=== PATIENT | female | born 1935 | race Caucasian/White ===

== ENCOUNTER 2016-12-13 10:21 | Emergency (ER) | payer OTHER ==
[~2016-12-13] VITALS: Ht 167.6 cm; Wt 80.0 kg
[~2016-12-13 10:21] MED LIST: ACET-703 PO; APIX5TAB PO; AZEL1SPR2 EACH NARE; BUSP10TA PO; CETI1TAB39 PO; DILT120T PO; FLUT1SPR5 EACH NARE; FOSA70TA PO; LOVA20TA PO; MONT10TA4 PO; OMEP40CA2 PO
[2016-12-13 10:24] VITALS: BP 176/76; PULSE 69; RESP 16; TEMP 97.8; O2SAT 98
--- NOTE | 2016-12-13 14:08 | PD ---
HPI Chief Complaint: Numbness/Tingling Time Seen by Provider: 13:58 Travel History International Travel<30 days: No Contact w/Intl Traveler<30days: No Traveled to known affect area: No History of Present Illness HPI This is an 81-year-old female with history of atrial fibrillation on eliquis, hypertension who presents for evaluation of numbness and tingling and weakness intermittently in the left upper and lower extremity. She reports that 3 weeks ago she stepped in a hole in her yard and fell, landing on her left side. She does not know if she hit her head or not. She reports that since then she has had some generalized pressure sensation in her head as well as some mild lower back pain which she describes as a soreness. She now reports that starting 4 days ago she has had intermittent episodes of numbness and heaviness/weakness sensation in her left arm and leg. She also was experiencing similar symptoms in her right leg which have since resolved. The episodes come and go, seemed to be primarily exacerbated by walking or standing. She is not currently experiencing any numbness or heaviness/weakness sensation. Symptoms have persisted which prompted evaluation today. She denies any blurred vision, facial droop, slurred speech, chest pain or shortness of breath, abdominal pain , nausea or vomiting, bowel or bladder incontinence, saddle anesthesia. Per chart review she was admitted for intermittent left leg numbness in 2014 but she says that this feels completely different. She reports that she was seeing neurologist Dr. Sousa. No other complaints. PFSH Past Medical History Hx Anticoagulant Therapy: Yes Arthritis: Yes (BILATERAL KNEES) Asthma: Yes Heart Rhythm Problems: No Cancer: No Cardiac Catheterization: No Cardiovascular Problems: Yes (A-FIB) High Cholesterol: No Chest Pain: Yes (ANXIETY RELATED) Congestive Heart Failure: No Cerebrovascular Accident: Yes Diabetes: No Diminished Hearing: No Diverticulitis: Yes (PERFORATED COLON) Endocrine: No Gastrointestinal Disorders: Yes (colon resection) Genitourinary: No Hypertension: Yes Immune Disorder: No Musculoskeletal: Yes Neurologic: No Reproductive: No Respiratory: Yes Past Surgical History Abdominal Surgery: Yes Appendectomy: Yes Cholecystectomy: Yes Coronary Artery Bypass Graft: No Gynecologic Surgery: Yes Hysterectomy: Yes Other Surgery: Yes (COLON RESECTION) Social History Alcohol Use: Yes (occasional wine) Tobacco Use: No Substance Use: No Allergies-Medications (Allergen,Severity, Reaction): Coded Allergies: No Known Allergies (Verified , 12/13/16) Reported Meds & Prescriptions Reported Meds & Active Scripts Active Medrol Dosepak (Methylprednisolone) 4 Mg Dspk 4 Mg PO DIRECTED Per Pharmacist direction Reported Diltiazem (Diltiazem HCl) 30 Mg Tab 10 Mg PO BID Omeprazole 20 Mg Tab 20 Mg PO DAILY Tylenol Extra Strength (Acetaminophen) 500 Mg Tab 500 Mg PO BID Fosamax (Alendronate Sodium) 70 Mg Tab 70 Mg PO WEEKLY Zyrtec Allergy (Cetirizine HCl) 10 Mg Tab 10 Mg PO DAILY Azelastine Nasal [place] (Azelastine HCl) 0.1% [place] 1 [place] EACH NARE HS PRN Montelukast (Montelukast Sodium) 10 Mg Tab 10 Mg PO HS PRN Flonase Nasal [place] (Fluticasone Nasal [place]) 50 Mcg/Act [place] 1 [place] EACH NARE DAILY Eliquis (Apixaban) 5 Mg Tab 5 Mg PO Q12HR Buspirone (Buspirone HCl) 10 Mg Tab 10 Mg PO Q12HR Lovastatin 20 Mg Tab 20 Mg PO DAILY Review of Systems Except as stated in HPI: all other systems reviewed are Neg Physical Exam Narrative GENERAL: Well-developed well-nourished female in no acute distress SKIN: Warm and dry. HEAD: Atraumatic. Normocephalic. EYES: Pupils equal and round. No scleral icterus. No injection or drainage. ENT: No nasal bleeding or discharge. Mucous membranes pink and moist. NECK: Trachea midline. No JVD. CARDIOVASCULAR: Regular rate and rhythm. No murmur appreciated. RESPIRATORY: No accessory muscle use. Clear to auscultation. Breath sounds equal bilaterally. GASTROINTESTINAL: Abdomen soft, non-tender, nondistended. Hepatic and splenic margins not palpable. MUSCULOSKELETAL: No obvious deformities. No clubbing. No cyanosis. No edema. NEUROLOGICAL: Awake and alert. No obvious cranial nerve deficits. Motor grossly within normal limits. Normal speech. 5 out of 5 muscle strength in the upper and lower extremities. PSYCHIATRIC: Appropriate mood and affect; insight and judgment normal. Data Data Last Documented VS Vital Signs Date Time Temp Pulse Resp B/P Pulse Ox O2 Delivery O2 Flow Rate FiO2 12/13/16 15:49 61 18 98 12/13/16 10:24 97.8 176/[address] Brain W/O Iv Contrast(Rout) (12/13/16 ) Spine, Lumbar - Ltd (Ap & Lat) (12/13/16 ) Electrocardiogram (12/13/16 14:03) Prothrombin Time / Inr (Pt) (12/13/16 14:03) Act Partial Throm Time (Ptt) (12/13/16 14:03) Complete Blood Count With Diff (12/13/16 14:03) Basic Metabolic Panel (Bmp) (12/13/16 14:03) Magnesium (Mg) (12/13/16 14:03) Mri L Spine W/O Contrast (12/13/16 ) Labs Laboratory Tests Test 12/13/16 14:10 White Blood Count 9.6 TH/MM3 Red Blood Count 4.63 MIL/MM3 Hemoglobin 14.8 GM/DL Hematocrit 43.0 % Mean Corpuscular Volume 93.0 FL Mean Corpuscular Hemoglobin 32.0 PG Mean Corpuscular Hemoglobin 34.5 % Concent Red Cell Distribution Width 12.6 % Platelet Count 243 TH/MM3 Mean Platelet Volume 8.2 FL Neutrophils (%) (Auto) 76.7 % Lymphocytes (%) (Auto) 14.5 % Monocytes (%) (Auto) 8.2 % Eosinophils (%) (Auto) 0.1 % Basophils (%) (Auto) 0.5 % Neutrophils # (Auto) 7.4 TH/MM3 Lymphocytes # (Auto) 1.4 TH/MM3 Monocytes # (Auto) 0.8 TH/MM3 Eosinophils # (Auto) 0.0 TH/MM3 Basophils # (Auto) 0.0 TH/MM3 CBC Comment DIFF FINAL Differential Comment Prothrombin Time 11.2 SEC Prothromb Time International 1.0 RATIO Ratio Activated Partial 30.1 SEC Thromboplast Time Sodium Level 133 MEQ/L Potassium Level 3.7 MEQ/L Chloride Level 96 MEQ/L Carbon Dioxide Level 28.4 MEQ/L Anion Gap 9 MEQ/L Blood Urea Nitrogen 16 MG/DL Creatinine 0.83 MG/DL Estimat Glomerular Filtration 66 ML/MIN Rate Random Glucose 103 MG/DL Calcium Level 9.2 MG/DL Magnesium Level 1.9 MG/DL [facility] Medical Decision Making Medical Screen Exam Complete: Yes Emergency Medical Condition: Yes Medical Record Reviewed: Yes Differential Diagnosis TIA, CVA, subdural hematoma, intracranial hemorrhage, electrolyte abnormality, herniated nucleus pulposus, spinal stenosis Narrative Course 81-year-old female who presents with 4 days of intermittent weakness and numbness in her left arm and leg, some similar symptoms in her right leg which seemed to have resolved. She does also note mild lower back pain and a headache ever since a mechanical fall 3 weeks ago. She does have a history of atrial fibrillation and she is on eliquis. At this moment she is asymptomatic and she has no focal neurologic deficits on examination. Basic lab work, EKG, CT of the brain, lumbar spine x-ray have been ordered. The patient was initially seen in triage. She will be moved to a medical bed and one becomes available. Scripts Methylprednisolone Dosepak (Medrol Dosepak)4 Mg Dspk4 Mg PO DIRECTED #1 DSPK Ref 0 Per Pharmacist direction Prov:Jc Yao MD 12/13/16 Nirav Kramer Dec 13, 2016 14:08
[2016-12-13 14:35] LABS: AUTOMATED NEUTROPHIL # 7.4 TH/MM3 (1.8-7.7); BASOPHIL % 0.5 % (0.0-2.0); EOSINOPHIL % 0.1 % (0.0-4.0); HEMO FLAGS DIFF FINAL; LYMPH % 14.5 % (9.0-44.0); LYMPHOCYTE # 1.4 TH/MM3 (1.0-4.8); MEAN CORPUSCULAR HGB CONC 34.5 % (32.0-36.0); MONO % 8.2 % (0.0-8.0); NEUT % 76.7 % (16.0-70.0); PLATELET COUNT 243 TH/MM3 (150-450); RED BLOOD COUNT 4.63 MIL/MM3 (4.00-5.30); RED CELL DISTRIBUTION WIDTH 12.6 % (11.6-17.2); WHITE BLOOD COUNT 9.6 TH/MM3 (4.0-11.0)
[2016-12-13 14:37] LABS: APTT (PATIENT) 30.1 SEC (24.3-30.1); PROTHROMBIN TIME - PATIENT 11.2 SEC (9.8-11.6)
--- NOTE | 2016-12-13 14:41 | RADRPT ---
EXAM DATE/TIME: 12/13/2016 14:26 [facility] COMPARISON: No previous studies available for comparison. INDICATIONS : Patient states lower back pain with numbness down left leg. MEDICAL HISTORY : None. SURGICAL HISTORY : Appendectomy. Cholecystectomy. Hysterectomy. Colon. ENCOUNTER: Initial ACUITY: 3 weeks PAIN SCORE: 2/10 LOCATION: Bilateral lumbar. FINDINGS: There is minimal anterior listhesis of L4 on L5 with minimal loss of disc space he ight at L4-5 and L5-S1. Moderate degenerative changes are present in the facets. SI joints are norm al. CONCLUSION: Degenerative changes as described above. MRI may be of benefit. Srinivas Farah MD FACR on December 13, 2016 at 14:35 Board Certified Radiologist. This report was verified electronically.
[2016-12-13 14:42] LABS: BICARBONATE 28.4 MEQ/L (21.0-32.0); MAGNESIUM 1.9 MG/DL (1.5-2.5); POTASSIUM 3.7 MEQ/L (3.5-5.1)
--- NOTE | 2016-12-13 15:37 | RADRPT ---
EXAM DATE/TIME: 12/13/2016 15:20 [facility] COMPARISON: CT BRAIN W/O CONTRAST, August 13, 2015, 9:40. INDICATIONS : Numbness and weakness in left upper and lower extremity for four days. RADIATION DOSE: 56.77 CTDIvol (mGy) MEDICAL HISTORY : Stroke. Hypertension. SURGICAL HISTORY : Hysterectomy. ENCOUNTER: Initial ACUITY: 4 - 6 days PAIN SCALE: 0/10 LOCATION: Bilateral head TECHNIQUE: Multiple contiguous axial images were obtained of the head. Using automated exposure control and adj ustment of the mA and/or kV according to patient size, radiation dose was kept as low as reasonably a chievable to obtain optimal diagnostic quality images. FINDINGS: CEREBRUM: The ventricles are normal for age. No evidence of midline shift, mass lesion, hemorrhage or acute in farction. No extra-axial fluid collections are seen. POSTERIOR FOSSA: The cerebellum and brainstem are intact. The 4th ventricle is midline. The cerebellopontine angle i s unremarkable. EXTRACRANIAL: The visualized portion of the orbits is intact. SKULL: The calvaria is intact. No evidence of skull fracture. CONCLUSION: Negative for an acute process. Srinivas Farah MD FACR on December 13, 2016 at 15:35 Board Certified Radiologist. This report was verified electronically.
[2016-12-13] MEDS ORDERED: DILT30TA PO (15:55)
[2016-12-13] MEDS ORDERED: OMEP20TA PO (15:55)
--- NOTE | 2016-12-13 17:08 | RADRPT ---
EXAM DATE/TIME: 12/13/2016 16:30 [facility] COMPARISON: No previous studies available for comparison. INDICATIONS : Radiculopathy. MEDICAL HISTORY : Hypertension. Afib SURGICAL HISTORY : Appendectomy. Cholecystectomy. Hysterectomy. Colon resuction. ENCOUNTER: Initial ACUITY: 4-6 days PAIN SCORE: 2/10 LOCATION: Left leg and foot TECHNIQUE: Multiplanar multisequence MRI of the lumbar spine was performed without contrast. FINDINGS: The most caudal appearing lumbar vertebra is numbered as L5. VERTEBRAE: Homogeneous signal. Normal alignment. CONUS: Normal level and configuration. Patient has 8 generous spinal canal T12-L1: The thecal sac has a normal diameter. No evidence of disc bulge or protrusion. The neural foramina are patent bilaterally. L1-L2: The thecal sac has a normal diameter. No evidence of disc bulge or protrusion. The neural foramina are patent bilaterally. L2-L3: The thecal sac has a normal diameter. No evidence of disc bulge or protrusion. The neural foramina are patent bilaterally. L3-L4: The thecal sac has a normal diameter. No evidence of disc bulge or protrusion. The neural foramina are patent bilaterally. L4-L5: The thecal sac has a normal diameter. No evidence of disc bulge or protrusion. The neural foramina are patent bilaterally. L5-S1: The thecal sac has a normal diameter. No evidence of disc bulge or protrusion. The neural foramina are patent bilaterally. CONCLUSION: I do not see disc hernia ion, conal impingement or other neural impingement to account for the left l ower extremity symptomatology.. Srinivas Farah MD FACR on December 13, 2016 at 17:04 Board Certified Radiologist. This report was verified electronically.
[2016-12-13] MEDS ORDERED: MEDR4PAK PO (17:15)
--- NOTE | 2016-12-13 17:15 | PD ---
Physical Exam Date Seen by Provider: Dec 13, 2016 Time Seen by Provider: 17:10 Narrative 81-year-old female that presents to the ED for evaluation of left lower leg numbness. Please refer to Nirav Kramer PAC note. She was originally seen by him. Case was signed out to me pending disposition and further testing if needed Data Data Last Documented VS Vital Signs Date Time Temp Pulse Resp B/P Pulse Ox O2 Delivery O2 Flow Rate FiO2 12/13/16 15:49 61 18 98 12/13/16 10:24 97.8 176/[address] Brain W/O Iv Contrast(Rout) (12/13/16 ) Spine, Lumbar - Ltd (Ap & Lat) (12/13/16 ) Electrocardiogram (12/13/16 14:03) Prothrombin Time / Inr (Pt) (12/13/16 14:03) Act Partial Throm Time (Ptt) (12/13/16 14:03) Complete Blood Count With Diff (12/13/16 14:03) Basic Metabolic Panel (Bmp) (12/13/16 14:03) Magnesium (Mg) (12/13/16 14:03) Mri L Spine W/O Contrast (12/13/16 ) Labs Laboratory Tests Test 12/13/16 14:10 White Blood Count 9.6 TH/MM3 Red Blood Count 4.63 MIL/MM3 Hemoglobin 14.8 GM/DL Hematocrit 43.0 % Mean Corpuscular Volume 93.0 FL Mean Corpuscular Hemoglobin 32.0 PG Mean Corpuscular Hemoglobin 34.5 % Concent Red Cell Distribution Width 12.6 % Platelet Count 243 TH/MM3 Mean Platelet Volume 8.2 FL Neutrophils (%) (Auto) 76.7 % Lymphocytes (%) (Auto) 14.5 % Monocytes (%) (Auto) 8.2 % Eosinophils (%) (Auto) 0.1 % Basophils (%) (Auto) 0.5 % Neutrophils # (Auto) 7.4 TH/MM3 Lymphocytes # (Auto) 1.4 TH/MM3 Monocytes # (Auto) 0.8 TH/MM3 Eosinophils # (Auto) 0.0 TH/MM3 Basophils # (Auto) 0.0 TH/MM3 CBC Comment DIFF FINAL Differential Comment Prothrombin Time 11.2 SEC Prothromb Time International 1.0 RATIO Ratio Activated Partial 30.1 SEC Thromboplast Time Sodium Level 133 MEQ/L Potassium Level 3.7 MEQ/L Chloride Level 96 MEQ/L Carbon Dioxide Level 28.4 MEQ/L Anion Gap 9 MEQ/L Blood Urea Nitrogen 16 MG/DL Creatinine 0.83 MG/DL Estimat Glomerular Filtration 66 ML/MIN Rate Random Glucose 103 MG/DL Calcium Level 9.2 MG/DL Magnesium Level 1.9 MG/DL [facility] Medical Record Reviewed: Yes Supervised Visit with PATRICIA: No Interpretation(s) Last Impressions Head CT 12/13/16 0000 Signed Impressions: Service Date/Time: Tuesday, December 13, 2016 15:20 - CONCLUSION: Negative for an acute process. Srinivas Farah MD FACR Lumbar x-ray showed no sign of acute disease but radiology recommended MRI MRI of the lumbar spine show no sign of acute disease. Differential Diagnosis Radiculopathy versus neuropathy versus weakness versus numbness Narrative Course 81-year-old female that presents to the ED for evaluation of left lower leg numbness. Patient was properly examined and was found to have signs and symptoms consistent appears to be subjective numbness. Patient has no neurological deficits on exam. Patient has 5 out of 5 strength. Full range of motion. Good 2+ pulses on my physical examination. No discoloration of the skin. No calf tenderness. Patient was originally seen by Bruce Kramer who asked me to disposition the patient pending imaging and labs. Initial labs and imaging ordered by him were essentially unremarkable. The lumbar x-ray the recommend an MRI for further evaluation of possible lumbar/buttock but the. A MRI was ordered. Patient agrees with plan. MRI was negative for acute disease. No sign of severe illness. No sign of mass. Unclear etiology of numbness but from the history does appear to be neuropathic. At this time I will start patient on some low-dose steroids to see maybe this will help with the symptoms for possible contusion to the nerve. Patient cannot take anti- inflammatories secondary to a rate taking blood thinners. Patient was told to take Tylenol for pain if she has any. My recommendation is that she follows up closely with PCP for further evaluation of this. See ED for any worsening symptoms. She agrees with plan. Diagnosis Primary Impression: Left leg numbness Additional Impression: Contusion Qualified Code: S30.0XXA - Contusion of lower back, initial encounter Patient Instructions: General Instructions Additional Instruction: Follow with your PCP these week. See ED for any worsening symptoms. Labs and imaging were essentially unremarkable here. No sign of acute disease. See ED for worsening symptoms. Med/Other Pt SpecificInfo: Prescription(s) given Disposition: 01 DISCHARGE HOME Condition: Stable Demetrius Aragon Dec 13, 2016 17:15
--- NOTE | 2016-12-15 08:15 | EKG ---
Date Performed: 12/13/2016 Time Performed: 14:51:20 PTAGE: 81 years EKG: SINUS BRADYCARDIA PROBABLE INFERIOR MYOCARDIAL INFARCTION POSSIBLE LEFT ATRIAL ENLARGEMENT ABNORMAL ECG Compared to PREVIOUS TRACING , there has been a slight increase in the lateral ST segment changes but no other significant serial change. PREVIOUS TRACIN09/07/2016 10.36.25 DOCTOR: Tiara Vasquez Interpretating Date/Time 12/16/2016 06:51:55
== END 2016-12-13 19:05 | disposition home or self-care (01) ==
LOC: NEPE 10:21
DX: R20.0 Anesthesia of skin (principal); S30.0XXA Contusion of lower back and pelvis, initial encounter; R53.1 Weakness; R51 Headache; R94.31 Abnormal electrocardiogram [ECG] [EKG]; I10 Essential (primary) hypertension; W17.2XXA Fall into hole, initial encounter; Z79.01 Long term (current) use of anticoagulants; Z87.39 Personal history of other diseases of the musculoskeletal system and connective tissue; Z87.09 Personal history of other diseases of the respiratory system; Z86.79 Personal history of other diseases of the circulatory system; Z87.19 Personal history of other diseases of the digestive system
CPT/HCPCS: 70450; 72100; 72148; 80048; 83735; 85025; 85610; 85730; 93005

== ENCOUNTER 2016-12-14 14:24 | Inpatient (IN) | payer OTHER, MEDICARE ==
[2016-12-14] VITALS (7 sets, daily range): BP systolic 168–180; BP diastolic 77–85; PULSE 59–68; RESP 16–20; TEMP 97.8–98.3; O2SAT 94–98
[~2016-12-14] VITALS: Ht 167.6 cm; Wt 85.8 kg
[~2016-12-14 14:24] MED LIST changes: -DILT120T PO; +DILT30TA PO; +MEDR4PAK PO; +OMEP20TA PO; -OMEP40CA2 PO
[2016-12-14] MEDS ORDERED: ASPIRIN 325 MG TAB PO ONE (14:45)
[2016-12-14] MEDS ORDERED: SODIUM CHLORIDE 0.9% FLUSH 10 ML FLUSH IVF PRN (14:45)
--- NOTE | 2016-12-14 14:47 | PD ---
HPI Chief Complaint: Numbness/Tingling Time Seen by Provider: 14:33 Travel History International Travel<30 days: No Contact w/Intl Traveler<30days: No History of Present Illness HPI Patient is an 81-year-old female with history of hypertension, atrial fibrillation (on eliquis), TIAs, hyperlipidemia, presents to emergency room for evaluation of left-sided weakness and tingling. Patient reports that since Tuesday, she has been having intermittent left-sided tingling and weakness. She reports that when symptoms come on, they last for about 10 minutes at a time and then resolve on it's own. Reports that yesterday, she had similar symptoms and went to [facility], reports that they did a CAT scan of her head as well as MRI of her low back and sent her home with instructions to follow-up with her primary care doctor. Patient reports that she continued to have symptoms last night, reports that she had symptoms again this morning, reports that when she has these attacks of left-sided weakness and tingling, nothing usually brings them on, reports complete resolution within 10 minutes of onset of symptoms. Patient reports that she did feel increased weakness to the left side of her body while in triage, reports that she feels better at this time with resolution of symptoms. Reports that she feels weak all over right now. Denies chest pain or shortness of breath at this time. Denies headache or dizziness. Patient reports "I just feel weak all over." PFSH Past Medical History Hx Anticoagulant Therapy: Yes Arthritis: Yes (BILATERAL KNEES) Asthma: Yes Heart Rhythm Problems: No Cancer: No Cardiac Catheterization: No Cardiovascular Problems: Yes (A-FIB) High Cholesterol: No Chest Pain: Yes (ANXIETY RELATED) Congestive Heart Failure: No Cerebrovascular Accident: Yes Diabetes: No Diminished Hearing: No Diverticulitis: Yes (PERFORATED COLON) Endocrine: No Gastrointestinal Disorders: Yes (colon resection) Genitourinary: No Hypertension: Yes Immune Disorder: No Musculoskeletal: Yes Neurologic: No Reproductive: No Respiratory: Yes Menopausal: Yes Past Surgical History Abdominal Surgery: Yes Appendectomy: Yes Cholecystectomy: Yes Coronary Artery Bypass Graft: No Gynecologic Surgery: Yes Hysterectomy: Yes Other Surgery: Yes (COLON RESECTION) Social History Alcohol Use: Yes (occasional wine) Tobacco Use: No Substance Use: No Allergies-Medications (Allergen,Severity, Reaction): Coded Allergies: No Known Allergies (Verified , 12/14/16) Reported Meds & Prescriptions Reported Meds & Active Scripts Active Medrol Dosepak (Methylprednisolone) 4 Mg Dspk 4 Mg PO DIRECTED Per Pharmacist direction Reported Diltiazem (Diltiazem HCl) 30 Mg Tab 10 Mg PO BID Omeprazole 20 Mg Tab 20 Mg PO DAILY Tylenol Extra Strength (Acetaminophen) 500 Mg Tab 500 Mg PO BID Fosamax (Alendronate Sodium) 70 Mg Tab 70 Mg PO WEEKLY Zyrtec Allergy (Cetirizine HCl) 10 Mg Tab 10 Mg PO DAILY Azelastine Nasal [place] (Azelastine HCl) 0.1% [place] 1 [place] EACH NARE HS PRN Montelukast (Montelukast Sodium) 10 Mg Tab 10 Mg PO HS PRN Flonase Nasal [place] (Fluticasone Nasal [place]) 50 Mcg/Act [place] 1 [place] EACH NARE DAILY Eliquis (Apixaban) 5 Mg Tab 5 Mg PO Q12HR Buspirone (Buspirone HCl) 10 Mg Tab 10 Mg PO Q12HR Lovastatin 20 Mg Tab 20 Mg PO DAILY Review of Systems General / Constitutional: No: Fever Eyes: No: Visual changes HENT: No: Headaches Cardiovascular: No: Chest Pain or Discomfort Respiratory: No: Shortness of Breath Gastrointestinal: No: Abdominal Pain Genitourinary: No: Dysuria Musculoskeletal: No: Pain Skin: No Rash Neurologic: Positive: Weakness, Sensory Disturbance Psychiatric: No: Depression Endocrine: No: Polydipsia Hematologic/Lymphatic: No: Easy Bruising Physical Exam Narrative GENERAL: NAD, Nontoxic SKIN: Warm and dry. HEAD: Atraumatic. Normocephalic. EYES: Pupils equal and round. No scleral icterus. No injection or drainage. ENT: No nasal bleeding or discharge. Mucous membranes pink and moist. NECK: Trachea midline. No JVD. CARDIOVASCULAR: Regular rate and rhythm. No murmur appreciated. RESPIRATORY: No accessory muscle use. Clear to auscultation. Breath sounds equal bilaterally. GASTROINTESTINAL: Abdomen soft, non-tender, nondistended. Hepatic and splenic margins not palpable. MUSCULOSKELETAL: No obvious deformities. No clubbing. No cyanosis. No edema. NEUROLOGICAL: Awake and alert. No obvious cranial nerve deficits. Motor grossly within normal limits. Normal speech. Cranial nerves 2-12 grossly intact with no obvious neurological deficits PSYCHIATRIC: Appropriate mood and affect; insight and judgment normal. Data Data Last Documented VS Vital Signs Date Time Temp Pulse Resp B/P Pulse Ox O2 Delivery O2 Flow Rate FiO2 12/14/16 14:47 98 12/14/16 14:47 66 16 Room Air 12/14/16 14:40 98.3 175/77 Orders Electrocardiogram (12/14/16 14:39) Prothrombin Time / Inr (Pt) (12/14/16 14:39) Act Partial Throm Time (Ptt) (12/14/16 14:39) Complete Blood Count With Diff (12/14/16 14:39) Comprehensive Metabolic Panel (12/14/16 14:39) Creatine Kinase (Cpk) (12/14/16 14:39) Troponin I (12/14/16 14:39) Urinalysis - C+S If Indicated (12/14/16 14:39) Ct Brain W/O Iv Contrast(Rout) (12/14/16 14:39) Chest, Single Ap (12/14/16 14:39) Ecg Monitoring (12/14/16 14:39) Iv Access Insert/Monitor (12/14/16 14:39) Oximetry (12/14/16 14:39) Aspirin (Aspirin) (12/14/16 14:45) Sodium Chloride 0.9% Flush (Ns Flush) (12/14/16 14:45) Ct Cerv Spine W/O Contrast (12/14/16 14:44) Labs Laboratory Tests Test 12/14/16 15:04 White Blood Count 9.6 TH/MM3 Red Blood Count 4.51 MIL/MM3 Hemoglobin 14.2 GM/DL Hematocrit 42.2 % Mean Corpuscular Volume 93.5 FL Mean Corpuscular Hemoglobin 31.4 PG Mean Corpuscular Hemoglobin 33.6 % Concent Red Cell Distribution Width 12.0 % Platelet Count 255 TH/MM3 Mean Platelet Volume 8.1 FL Neutrophils (%) (Auto) 88.7 % Lymphocytes (%) (Auto) 8.3 % Monocytes (%) (Auto) 2.7 % Eosinophils (%) (Auto) 0.1 % Basophils (%) (Auto) 0.2 % Neutrophils # (Auto) 8.5 TH/MM3 Lymphocytes # (Auto) 0.8 TH/MM3 Monocytes # (Auto) 0.3 TH/MM3 Eosinophils # (Auto) 0.0 TH/MM3 Basophils # (Auto) 0.0 TH/MM3 CBC Comment DIFF FINAL Differential Comment Prothrombin Time 11.6 SEC Prothromb Time International 1.0 RATIO Ratio Activated Partial 31.2 SEC Thromboplast Time Sodium Level 131 MEQ/L Potassium Level 3.8 MEQ/L Chloride Level 95 MEQ/L Carbon Dioxide Level 25.6 MEQ/L Anion Gap 10 MEQ/L Blood Urea Nitrogen 20 MG/DL Creatinine 0.85 MG/DL Estimat Glomerular Filtration 64 ML/MIN Rate Random Glucose 191 MG/DL Calcium Level 8.9 MG/DL Total Bilirubin 0.7 MG/DL Aspartate Amino Transf 13 U/L (AST/SGOT) Alanine Aminotransferase 23 U/L (ALT/SGPT) Alkaline Phosphatase 50 U/L Total Creatine Kinase 38 U/L Troponin I LESS THAN 0.02 NG/ML Total Protein 6.9 GM/DL Albumin 3.7 GM/DL MDM Medical Decision Making Medical Screen Exam Complete: Yes Emergency Medical Condition: Yes Interpretation(s) EKG at 1445: NSR at 62bpm, qt/qtc: 414/417, nonspecific st seg changes Differential Diagnosis CVA, TIA, intracranial hemorrhage, atrial fibrillation, electrolyte abnormality , arrhythmia Narrative Course Patient is an 81-year-old female who presents to emergency room with complaints of left-sided numbness and weakness since Tuesday. Patient reports that symptoms have been intermittent for her, they last for about 10 minutes at a time. Patient was seen in the emergency yesterday and had a workup, she was sent home with instructions to follow-up with her primary care doctor. Patient continues to have increased intermittent left-sided weakness and numbness. Patient at this time has resolution of symptoms and reports generalized weakness. Her neuro exam is benign. Discussed need for workup for possible TIAs. Ct of head ordered as well as lab work. Will give patient an aspirin Ailyn Van DO Dec 14, 2016 14:47
[2016-12-14 15:22] LABS: CHLORIDE 95 MEQ/L (98-107); POTASSIUM 3.8 MEQ/L (3.5-5.1); SODIUM (NA) 131 MEQ/L (136-145)
[2016-12-14 15:26] LABS: ANION GAP 10 MEQ/L (5-15); APTT (PATIENT) 31.2 SEC (24.3-30.1); BICARBONATE 25.6 MEQ/L (21.0-32.0); BLOOD UREA NITROGEN 20 MG/DL (7-18); PROTHROMBIN TIME - PATIENT 11.6 SEC (9.8-11.6)
[2016-12-14 15:29] LABS: ALT (GPT) 23 U/L (10-53); AST (GOT) 13 U/L (15-37); GLOMERULAR FILTRATION RATE 64 ML/MIN (>89)
[2016-12-14 15:31] LABS: TOTAL BILIRUBIN ADULT 0.7 MG/DL (0.2-1.0)
[2016-12-14 15:32] LABS: ALKALINE PHOSPHATASE 50 U/L (45-117)
[2016-12-14 15:37] LABS: AUTOMATED NEUTROPHIL # 8.5 TH/MM3 (1.8-7.7); BASOPHIL % 0.2 % (0.0-2.0); EOSINOPHIL % 0.1 % (0.0-4.0); HEMATOCRIT 42.2 % (35.0-46.0); LYMPH % 8.3 % (9.0-44.0); LYMPHOCYTE # 0.8 TH/MM3 (1.0-4.8); MEAN CELL VOLUME 93.5 FL (80.0-100.0); MEAN CORPUSCULAR HEMOGLOBIN 31.4 PG (27.0-34.0); MEAN CORPUSCULAR HGB CONC 33.6 % (32.0-36.0); MONO % 2.7 % (0.0-8.0); NEUT % 88.7 % (16.0-70.0); PLATELET COUNT 255 TH/MM3 (150-450); RED BLOOD COUNT 4.51 MIL/MM3 (4.00-5.30); WHITE BLOOD COUNT 9.6 TH/MM3 (4.0-11.0)
[2016-12-14 15:39] LABS: HEMO FLAGS DIFF FINAL
[2016-12-14 15:47] LABS: CREATINE KINASE 38 U/L (26-192)
--- NOTE | 2016-12-14 15:56 | RADHPO ---
EXAM DATE/TIME: 12/14/2016 14:44 [facility] COMPARISON: CHEST SINGLE AP, September 07, 2016, 10:37. INDICATIONS : Shortness of breath. MEDICAL HISTORY : Stroke. Hypertension SURGICAL HISTORY : Hysterectomy. ENCOUNTER: Initial ACUITY: 1 day PAIN SCORE: 0/10 LOCATION: Bilateral chest FINDINGS: A single view of the chest demonstrates the lungs to be symmetrically aerated without evidence of mas s, infiltrate or effusion. A calcified granuloma is seen within the left upper lobe. The cardiomedia stinal contours are unremarkable. Osseous structures are intact. CONCLUSION: No acute disease. Nomi Caballero Jr., MD on December 14, 2016 at 15:54 Board Certified Radiologist. This report was verified electronically.
--- NOTE | 2016-12-14 16:29 | RADHPO ---
EXAM DATE/TIME: 12/14/2016 15:29 [facility] COMPARISON: CT BRAIN W/O CONTRAST, December 13, 2016, 15:20. INDICATIONS : Numbness left arm. Nausea. Evaluate for cerebrovascular accident. RADIATION DOSE: 57.03 CTDIvol (mGy) MEDICAL HISTORY : Cerebrovascular disease. Hypertension. SURGICAL HISTORY : None. ENCOUNTER: Initial ACUITY: 3 weeks PAIN SCALE: 6/10 LOCATION: Bilateral occipital TECHNIQUE: Multiple contiguous axial images were obtained of the head. Using automated exposure control and adj ustment of the mA and/or kV according to patient size, radiation dose was kept as low as reasonably a chievable to obtain optimal diagnostic quality images. FINDINGS: CEREBRUM: The ventricles are normal for age. No evidence of midline shift, mass lesion, hemorrhage or acute in farction. No extra-axial fluid collections are seen. POSTERIOR FOSSA: The cerebellum and brainstem are intact. The 4th ventricle is midline. The cerebellopontine angle i s unremarkable. EXTRACRANIAL: The visualized portion of the orbits is intact. SKULL: The calvaria is intact. No evidence of skull fracture. CONCLUSION: 1. No evidence of acute intracranial pathology. No masses are identified. Marciano Small MD on December 14, 2016 at 16:27 Board Certified Radiologist. This report was verified electronically.
--- NOTE | 2016-12-14 16:35 | RADHPO ---
EXAM DATE/TIME: 12/14/2016 15:29 [facility] COMPARISON: No previous studies available for comparison. INDICATIONS : Left upper extremity numbness. RADIATION DOSE: 26.43 CTDIvol (mGy) MEDICAL HISTORY : Cerebrovascular disease. Hypertension. SURGICAL HISTORY : None. ENCOUNTER: Initial ACUITY: 3 weeks PAIN SCALE: 6/10 LOCATION: Bilateral neck TECHNIQUE: Volumetric scanning of the cervical spine was performed. Multiplanar reconstructions in the sagittal, coronal and oblique axial planes were performed. Using automated exposure control and adjustment o f the mA and/or kV according to patient size, radiation dose was kept as low as reasonably achievable to obtain optimal diagnostic quality images. FINDINGS: CT of the cervical spine was performed in sagittal and axial planes. There is straightening of the no rmal cervical lordosis which may be secondary positioning or spasm. No focal areas of marrow replacem ent are identified. The craniocervical junction appears normal. Axial images were performed from C2-C 3 through C7-T1. There is multilevel disc space narrowing and marginal osteophyte formation maximal a t C5-C6. C2-C3: No significant abnormalities identified. C3-C4: There is uncovertebral joint hypertrophy on left side. There is mild left sided neural foraminal narr owing. There is mild facet arthritis on the left. There is no significant spinal canal stenosis. C4-C5: There is mild diffuse annular bulge of the disc. The neural foramina are clear bilaterally. There is no significant spinal canal stenosis. C5-C6: There is osteophytic ridging asymmetric to the right. There is mild right sided neural foraminal narr owing. C6-C7: There is no evidence of disc protrusion or spinal canal stenosis. There is uncovertebral joint hypert rophy on left side. There is mild left sided neural foraminal narrowing. C7-T1: No significant abnormalities identified. CONCLUSION: 1. Moderate degenerative changes as described above. this is maximal asymmetric to the right at C5-C6 without stenosis. Marciano Small MD on December 14, 2016 at 16:28 Board Certified Radiologist. This report was verified electronically.
--- NOTE | 2016-12-14 17:06 | PD ---
Physical Exam Narrative Received from previous provider to follow up imaging and admit for observation for TIA. 81yo F with afib on eliquis, TIA with left sided weakness here with new onset left arm and leg numbness for 4 days. States it is intermittent. Only deficit on exam is decreased sensation on left arm and leg compare to right. Muscle strength 5/5 in all extremities. Labs reviewed, no leukocytosis. Mild hyponatremia and mildly elevated BUN. Troponin negative. Will give NS 500cc IV. CT cspine showed moderate degenerative changes. CXR negative. CT brain negative. Discussed with Dr. Goodwin and accepted to his service. Neuro consult placed. Data Data Last Documented VS Vital Signs Date Time Temp Pulse Resp B/P Pulse Ox O2 Delivery O2 Flow Rate FiO2 12/14/16 14:47 98 12/14/16 14:47 66 16 Room Air 12/14/16 14:40 98.3 175/77 Orders Electrocardiogram (12/14/16 14:39) Prothrombin Time / Inr (Pt) (12/14/16 14:39) Act Partial Throm Time (Ptt) (12/14/16 14:39) Complete Blood Count With Diff (12/14/16 14:39) Comprehensive Metabolic Panel (12/14/16 14:39) Creatine Kinase (Cpk) (12/14/16 14:39) Troponin I (12/14/16 14:39) Urinalysis - C+S If Indicated (12/14/16 14:39) Ct Brain W/O Iv Contrast(Rout) (12/14/16 14:39) Chest, Single Ap (12/14/16 14:39) Ecg Monitoring (12/14/16 14:39) Iv Access Insert/Monitor (12/14/16 14:39) Oximetry (12/14/16 14:39) Aspirin (Aspirin) (12/14/16 14:45) Sodium Chloride 0.9% Flush (Ns Flush) (12/14/16 14:45) Ct Cerv Spine W/O Contrast (12/14/16 14:44) Labs Laboratory Tests Test 12/14/16 15:04 White Blood Count 9.6 TH/MM3 Red Blood Count 4.51 MIL/MM3 Hemoglobin 14.2 GM/DL Hematocrit 42.2 % Mean Corpuscular Volume 93.5 FL Mean Corpuscular Hemoglobin 31.4 PG Mean Corpuscular Hemoglobin 33.6 % Concent Red Cell Distribution Width 12.0 % Platelet Count 255 TH/MM3 Mean Platelet Volume 8.1 FL Neutrophils (%) (Auto) 88.7 % Lymphocytes (%) (Auto) 8.3 % Monocytes (%) (Auto) 2.7 % Eosinophils (%) (Auto) 0.1 % Basophils (%) (Auto) 0.2 % Neutrophils # (Auto) 8.5 TH/MM3 Lymphocytes # (Auto) 0.8 TH/MM3 Monocytes # (Auto) 0.3 TH/MM3 Eosinophils # (Auto) 0.0 TH/MM3 Basophils # (Auto) 0.0 TH/MM3 CBC Comment DIFF FINAL Differential Comment Prothrombin Time 11.6 SEC Prothromb Time International 1.0 RATIO Ratio Activated Partial 31.2 SEC Thromboplast Time Sodium Level 131 MEQ/L Potassium Level 3.8 MEQ/L Chloride Level 95 MEQ/L Carbon Dioxide Level 25.6 MEQ/L Anion Gap 10 MEQ/L Blood Urea Nitrogen 20 MG/DL Creatinine 0.85 MG/DL Estimat Glomerular Filtration 64 ML/MIN Rate Random Glucose 191 MG/DL Calcium Level 8.9 MG/DL Total Bilirubin 0.7 MG/DL Aspartate Amino Transf 13 U/L (AST/SGOT) Alanine Aminotransferase 23 U/L (ALT/SGPT) Alkaline Phosphatase 50 U/L Total Creatine Kinase 38 U/L Troponin I LESS THAN 0.02 NG/ML Total Protein 6.9 GM/DL Albumin 3.7 GM/DL MDM Supervised Visit with PATRICIA: No Diagnosis Primary Impression: CVA (cerebral vascular accident) Qualified Code: I63.9 - Cerebrovascular accident (CVA), unspecified mechanism Admitting Information Admitting Physician Requests: Shanell Barone DO Dec 14, 2016 17:06
[2016-12-14] MEDS ORDERED: ENALAPRILAT 1.25 MG/ML VIAL IV PRN (17:15)
[2016-12-14] MEDS ORDERED: GLUCAGON 1 MG/ML VIAL OTHER PRN (17:15)
[2016-12-14] MEDS ORDERED: DEXTROSE 50% IN WATER 50 ML VIAL(D50) IV PUSH PRN (17:15)
[2016-12-14] MEDS ORDERED: SODIUM CHLORIDE 0.9% FLUSH 10 ML FLUSH IV FLUSH PRN (17:15)
[2016-12-14 17:31] LABS: BLOOD, URINE NEG (NEG); GLUCOSE,URINE NEG (NEG); KETONE, URINE NEG (NEG); NITRITE,URINE NEG (NEG); PH, URINE 6.5 (5.0-8.5)
[2016-12-14 17:37] LABS: COMMENT (UR) CATH-CULT NOT IND; CULTURE IF INDICATED CATH CULTURE NOT IND; MUCUS URINE RARE /lpf (OCC); SQUAMOUS EPITHELIAL CELL URINE 0-5 /hpf (0-5); URINE COLOR YELLOW (YELLW/STRAW)
[2016-12-14] MEDS ORDERED: SODIUM CHLORID 0.9% 500 ML INJ 500 ML IV ONE (17:45)
--- NOTE | 2016-12-14 18:32 | HHI.HP ---
[facility] Service [facility] Primary [facility] Physician Nan Burroughs MD Admission Diagnosis CVA Diagnoses: (1) Left leg weakness Diagnosis: Principal (2) Left arm numbness Diagnosis: Principal (3) History of transient ischemic attack Diagnosis: Secondary (4) Atrial fibrillation Diagnosis: Secondary (5) Hypertension Diagnosis: Secondary (6) Hyperlipidemia Diagnosis: Secondary Chief Complaint: Left arm numbness, left leg numbness/weakness Travel History International Travel<30 Days: No Contact w/Intl Traveler <30 Da: No Traveled to Known Affected Are: No History of Present Illness 81-year-old female with known history of hypertension, hyperlipidemia , history TIA, history of chronic atrial fibrillation who is fully anticoagulated on Eliquis presented to hospital because of 3 days of numbness of the left upper and lower extremity. Patient states that she fell approximately 3 weeks ago and hit her head. She has had intermittent headaches since then. Approximate 3 days ago she started developing numbness in her left arm and left leg. She did come to emergency department yesterday and had evaluation done with multiple images studies to include lumbar spine x-ray lumbar MRI, CT scan of the brain. There is no acute findings noted that time. Is concluded that patient may have some inflammatory process and was started on a steroid Dosepak. Patient states that she took approximately 3 tablets today. Washes out eating lunch she had worsening of the left upper extremity numbness. It was she tried to stand and walk she states that she could not because she had left lower extremity weakness and numbness. Patient came to emergency department for evaluation. Patient did undergo CT scan of the brain 24 hours later which did not indicate any acute abnormality. CT scan of the neck shows monitor GEN or changes with maximal asymmetry to the right at C5-C6 without stenosis. The patient has persistent symptoms is recommended by the ER physician that the patient be admitted the hospital to rule out TIA/CVA. Patient states that she still has a headache, she fell 3 weeks ago. Patient denies any visual disturbances, dysphagia, difficulty speaking. Review of Systems Constitutional: DENIES: Diaphoretic episodes, Fatigue, Fever, Weight gain, Weight loss, Chills, Dizziness, Change in appetite, Night Sweats Eyes: DENIES: Blurred vision, Diplopia, Eye inflammation, Eye pain, Vision loss , Double Vision Ears, nose, mouth, throat: DENIES: Tinnitus, Hearing loss, Vertigo, Nasal discharge, Oral lesions, Throat pain, Hoarseness, Ear Pain, Running Nose, Epistaxis, Sinus Pain, Toothache, Odynophagia Respiratory: DENIES: Apneas, Cough, Snoring, Wheezing, Hemoptysis, Sputum production, Shortness of breath Cardiovascular: DENIES: Chest pain, Palpitations, Syncope, Dyspnea on Exertion , Lower Extremity Edema, Orthopnea Gastrointestinal: DENIES: Abdominal pain, Black stools, Bloody stools, Constipation, Diarrhea, Nausea, Vomiting, Difficulty Swallowing, Anorexia Musculoskeletal: DENIES: Joint pain, Muscle aches, Stiffness, Joint Swelling, Back pain, Neck pain Neurologic: COMPLAINS OF: Localized weakness (left leg), Paresthesias, DENIES : Abnormal gait, Headache, Seizures, Speech Problems, Tremor, Poor Balance Psychiatric: DENIES: Anxiety, Confusion, Mood changes, Depression, Hallucinations, Agitation, Suicidal Ideation, Homicidal Ideation, Delusions Past Family Social History Past Medical History Hypertension Hyperlipidemia History TIAs History diverticulitis status post colectomy Chronic bronchitis Past Surgical History Appendectomy Colon Resection Hysterectomy Cholecystectomy Reported Medications Reported Meds & Active Scripts Active Medrol Dosepak (Methylprednisolone) 4 Mg Dspk 4 Mg PO DIRECTED Per Pharmacist direction Reported Diltiazem (Diltiazem HCl) 30 Mg Tab 10 Mg PO BID Omeprazole 20 Mg Tab 20 Mg PO DAILY Tylenol Extra Strength (Acetaminophen) 500 Mg Tab 500 Mg PO BID Fosamax (Alendronate Sodium) 70 Mg Tab 70 Mg PO WEEKLY Zyrtec Allergy (Cetirizine HCl) 10 Mg Tab 10 Mg PO DAILY Azelastine Nasal [place] (Azelastine HCl) 0.1% [place] 1 [place] EACH NARE HS PRN Montelukast (Montelukast Sodium) 10 Mg Tab 10 Mg PO HS PRN Flonase Nasal [place] (Fluticasone Nasal [place]) 50 Mcg/Act [place] 1 [place] EACH NARE DAILY Eliquis (Apixaban) 5 Mg Tab 5 Mg PO Q12HR Buspirone (Buspirone HCl) 10 Mg Tab 10 Mg PO Q12HR Lovastatin 20 Mg Tab 20 Mg PO DAILY Allergies: Coded Allergies: No Known Allergies (Verified , 12/14/16) Family History Reviewed is significant for mother having high blood pressure, stroke. Father with colon cancer which metastasized to the liver Social History Patient does use alcohol occasionally, denies any tobacco or illicit drugs Physical Exam Vital Signs Vital Signs Date Time Temp Pulse Resp B/P Pulse Ox O2 Delivery O2 Flow Rate FiO2 12/14/16 17:38 68 16 168/84 97 Room Air 12/14/16 14:47 98 12/14/16 14:47 66 16 98 Room Air 12/14/16 14:40 98.3 66 16 175/77 98 Physical Exam GENERAL: This is a well-nourished, well-developed patient, in no apparent distress. SKIN: No rashes, ecchymoses or lesions. Cool and dry. HEAD: Atraumatic. Normocephalic. No temporal or scalp tenderness. EYES: Pupils equal round and reactive. Extraocular motions intact. No scleral icterus. No injection or drainage. ENT: Nose without bleeding, purulent drainage or septal hematoma. Throat without erythema, tonsillar hypertrophy or exudate. Uvula midline. Airway patent. NECK: Trachea midline. No JVD or lymphadenopathy. Supple, nontender, no meningeal signs. CARDIOVASCULAR: Regular rate and rhythm without murmurs, gallops, or rubs. RESPIRATORY: Clear to auscultation. Breath sounds equal bilaterally. No wheezes , rales, or rhonchi. GASTROINTESTINAL: Abdomen soft, non-tender, nondistended. No hepato-splenomegaly , or palpable masses. No guarding. MUSCULOSKELETAL: Extremities without clubbing, cyanosis, or edema. No joint tenderness, effusion, or edema noted. No calf tenderness. Negative Homans sign bilaterally. NEUROLOGICAL: Awake and alert. Cranial nerves II through XII intact. Motor and sensory grossly within normal limits. Five out of 5 muscle strength in all muscle groups. Normal speech. Laboratory Laboratory Tests Test 12/14/16 12/14/16 15:04 16:45 White Blood Count 9.6 Red Blood Count 4.51 Hemoglobin 14.2 Hematocrit 42.2 Mean Corpuscular Volume 93.5 Mean Corpuscular Hemoglobin 31.4 Mean Corpuscular Hemoglobin 33.6 Concent Red Cell Distribution Width 12.0 Platelet Count 255 Mean Platelet Volume 8.1 Neutrophils (%) (Auto) 88.7 Lymphocytes (%) (Auto) 8.3 Monocytes (%) (Auto) 2.7 Eosinophils (%) (Auto) 0.1 Basophils (%) (Auto) 0.2 Neutrophils # (Auto) 8.5 Lymphocytes # (Auto) 0.8 Monocytes # (Auto) 0.3 Eosinophils # (Auto) 0.0 Basophils # (Auto) 0.0 CBC Comment DIFF FINAL Differential Comment Prothrombin Time 11.6 Prothromb Time International 1.0 Ratio Activated Partial 31.2 Thromboplast Time Sodium Level 131 Potassium Level 3.8 Chloride Level 95 Carbon Dioxide Level 25.6 Anion Gap 10 Blood Urea Nitrogen 20 Creatinine 0.85 Estimat Glomerular Filtration 64 Rate Random Glucose 191 Calcium Level 8.9 Total Bilirubin 0.7 Aspartate Amino Transf 13 (AST/SGOT) Alanine Aminotransferase 23 (ALT/SGPT) Alkaline Phosphatase 50 Total Creatine Kinase 38 Troponin I LESS THAN 0.02 Total Protein 6.9 Albumin 3.7 Urine Color YELLOW Urine Turbidity CLEAR Urine pH 6.5 Urine Specific [place] 1.015 Urine Protein NEG Urine Glucose (UA) NEG Urine Ketones NEG Urine Occult Blood NEG Urine Nitrite NEG Urine Bilirubin NEG Urine Leukocyte Esterase NEG Urine Squamous Epithelial 0-5 Cells Urine Mucus RARE Microscopic Urinalysis Comment CATH-CULT NOT IND Result Diagram: 12/14/16 1504 12/14/16 1504 Imaging Last Impressions Cervical Spine CT 12/14/16 1444 Signed Impressions: Service Date/Time: Wednesday, December 14, 2016 15:29 - CONCLUSION: 1. Moderate degenerative changes as described above. this is maximal asymmetric to the right at C5-C6 without stenosis. Marciano Small MD Head CT 12/14/16 1439 Signed Impressions: Service Date/Time: Wednesday, December 14, 2016 15:29 - CONCLUSION: 1. No evidence of acute intracranial pathology. No masses are identified. Marciano Small MD Chest X-Ray 12/14/16 1439 Signed Impressions: Service Date/Time: Wednesday, December 14, 2016 14:44 - CONCLUSION: No acute disease. Nomi Caballero Jr., MD Assessment and Plan Assessment and Plan 1. Left arm and left leg numbness and weakness: CT scan was done with repeat 24 hours later without any acute abnormality. Could be TIA. We will continue with workup to include MRI/MRA of the brain, carotid ultrasound, echocardiogram , laboratory studies to include B12, folate, sedimentation rate, TSH, lipid panel. We'll get PT/OT/ST evaluations. Neurology has been consulted. Patient is already fully anticoagulated on Eliquis. Will defer any further anticoagulation to neurology. Keep head of bed flat for 12 hours. 2. Hypertension, hyperlipidemia, history of a defibrillation: Keep the pressure permissive at this time. Resume statin, resume anticoagulation 3. DVT prevention: Patient on Eliquis Physician Certification 2 Midnight Certification Type: Admission for Inpatient Services Order for Inpatient Services The services are ordered in accordance with Medicare regulations or non- Medicare payer requirements, as applicable. In the case of services not specified as inpatient-only, they are appropriately provided as inpatient services in accordance with the 2-midnight benchmark. Estimated LOS (days): 2 days is the estimated time the patient will need to remain in the hospital, assuming treatment plan goals are met and no additional complications. Post-Hospital Plan: Not yet determined Problem Qualifiers (1) Atrial fibrillation: Qualified Code: I48.91 - Atrial fibrillation, unspecified type (2) Hypertension: Qualified Code: I15.9 - Secondary hypertension (3) Hyperlipidemia: Qualified Code: E78.5 - Hyperlipidemia, unspecified hyperlipidemia type Mauricio Chaparro Dec 14, 2016 18:32
[2016-12-14] MEDS: INSULIN ASPART SUPPLEMENTAL SCALE SQ SCH (21:00)
[2016-12-14] MEDS ORDERED: DILTIAZEM HCL 30 MG TAB PO SCH (21:00)
[2016-12-14] MEDS: SODIUM CHLORIDE 0.9% FLUSH 10 ML FLUSH IV FLUSH SCH (21:00)
[2016-12-14 22:12] LABS: HEMOGLOBIN A1a 1.2 %; HEMOGLOBIN A1b 0.8 %; HEMOGLOBIN Ao 84.1 %; HEMOGLOBIN F 1.1 %; HEMOGLOBIN LA1C 2.6 %
--- NOTE | 2016-12-14 22:30 | EKG ---
Date Performed: 12/14/2016 Time Performed: 14:45:14 PTAGE: 81 years EKG: Sinus rhythm Possible inferior infarct - age undetermined Lateral ST changes are nonspecific Abnormal ECG PREVIOUS TRACING : 12/13/2016 14.51 Compared to prior tracing no significant change DOCTOR: Desirae Coyle Interpretating Date/Time 12/14/2016 22:29:12
[2016-12-14] MEDS: APIXABAN 5 MG TABLET PO SCH (22:59)
[2016-12-14] MEDS: busPIRone HCL 10 MG TAB PO SCH (22:59)
[2016-12-15] VITALS (7 sets, daily range): BP systolic 154–180; BP diastolic 78–87; PULSE 55–59; RESP 18–20; TEMP 95.5–98.2; O2SAT 93–97
[2016-12-15] MEDS: INSULIN ASPART SUPPLEMENTAL SCALE SQ SCH ×3 (06:26→16:00)
[2016-12-15 06:58] LABS: AUTOMATED NEUTROPHIL # 6.6 TH/MM3 (1.8-7.7); BASOPHIL % 0.3 % (0.0-2.0); EOSINOPHIL % 0.1 % (0.0-4.0); HEMATOCRIT 40.4 % (35.0-46.0); LYMPH % 12.6 % (9.0-44.0); MEAN CELL VOLUME 94.3 FL (80.0-100.0); MEAN CORPUSCULAR HEMOGLOBIN 32.1 PG (27.0-34.0); MEAN CORPUSCULAR HGB CONC 34.1 % (32.0-36.0); PLATELET COUNT 221 TH/MM3 (150-450); POTASSIUM 3.9 MEQ/L (3.5-5.1); RED BLOOD COUNT 4.28 MIL/MM3 (4.00-5.30); RED CELL DISTRIBUTION WIDTH 11.8 % (11.6-17.2); WHITE BLOOD COUNT 8.3 TH/MM3 (4.0-11.0)
[2016-12-15 07:02] LABS: BICARBONATE 27.6 MEQ/L (21.0-32.0)
[2016-12-15 07:12] LABS: HEMO FLAGS DIFF FINAL
--- NOTE | 2016-12-15 08:26 | PD.CONS ---
History of Present Illness Service Neurology Consult Requested By er Reason for Consult tia Primary Care Physician Nan Burroughs MD History of Present Illness 81-year-old female admitted for tia. since this past tuesday has had numbness in her left foot and arm. off/on, worse when she stands. no loc, no weakness. can ambulate when it occurs. mild headache. no temp tenderness. no fever. no vision symptoms. no neck pain. on eliquis for afib. glucose 191, ct brain nml. bp 175/77 in er. hx of previous left leg weakness that resolved. this occurred many years ago and she is not certain if any acute stroke was found at that time or not. has been under a lot stress related to her spouse's dx of cancer, who will be starting chemo tomorrow. 07/2015 mri brain no acute stroke. Review of Systems as above and admit hp Past Family Social History Past Medical History Hypertension Hyperlipidemia History TIAs History diverticulitis status post colectomy Chronic bronchitis Past Surgical History Appendectomy Colon Resection Hysterectomy Cholecystectomy Reported Medications Reported Meds & Active Scripts Active Medrol Dosepak (Methylprednisolone) 4 Mg Dspk 4 Mg PO DIRECTED Per Pharmacist direction Reported Diltiazem (Diltiazem HCl) 30 Mg Tab 10 Mg PO BID Omeprazole 20 Mg Tab 20 Mg PO DAILY Tylenol Extra Strength (Acetaminophen) 500 Mg Tab 500 Mg PO BID Fosamax (Alendronate Sodium) 70 Mg Tab 70 Mg PO WEEKLY Zyrtec Allergy (Cetirizine HCl) 10 Mg Tab 10 Mg PO DAILY Azelastine Nasal [place] (Azelastine HCl) 0.1% [place] 1 [place] EACH NARE HS PRN Montelukast (Montelukast Sodium) 10 Mg Tab 10 Mg PO HS PRN Flonase Nasal [place] (Fluticasone Nasal [place]) 50 Mcg/Act [place] 1 [place] EACH NARE DAILY Eliquis (Apixaban) 5 Mg Tab 5 Mg PO Q12HR Buspirone (Buspirone HCl) 10 Mg Tab 10 Mg PO Q12HR Lovastatin 20 Mg Tab 20 Mg PO DAILY Allergies: Coded Allergies: No Known Allergies (Verified , 12/14/16) Family History m- htn, stroke f- colon cancer Social History lives with spouse denies any tobacco or illicit drugs Review of Systems All other ROS: ROS reviewed as documented in chart Past Family Social History Allergies: Coded Allergies: No Known Allergies (Verified , 12/14/16) Active Ordered Medications Current Medications Medications (Trade) Dose Ordered Sig/Denisha Route Start Time Stop Time Status Last Admin (NS Flush) 2 ml BID IV FLUSH 12/14/16 21:00 12/14/16 21:00 (NS Flush) 2 ml UNSCH PRN IV FLUSH 12/14/16 17:15 (Vasotec Inj) 1.25 mg Q4H PRN IV 12/14/16 17:15 (Aspirin) 325 mg DAILY PO 12/15/16 09:00 (D50w (Vial) Inj) 25 ml UNSCH PRN IV PUSH 12/14/16 17:15 (Glucagon Inj) 1 mg UNSCH PRN OTHER 12/14/16 17:15 (Eliquis) 5 mg Q12HR PO 12/14/16 21:00 12/14/16 22:59 (Buspar) 10 mg Q12HR PO 12/14/16 21:00 12/14/16 22:59 (Pravachol) 20 mg DAILY PO 12/15/16 09:00 (Protonix) 20 mg DAILY PO 12/15/16 09:00 Exam I&O / VS 12/14/16 12/14/16 12/15/16 15:00 23:00 07:00 Intake Total 120 ml 0 ml Balance 120 ml 0 ml Intake Oral 120 ml 0 ml IV Total 0 ml # Voids 3 3 # Bowel Movements 0 0 Vital Signs Date Time Temp Pulse Resp B/P Pulse Ox O2 Delivery O2 Flow Rate FiO2 12/15/16 06:00 98.2 55 20 162/80 96 12/15/16 04:00 98.2 58 18 158/87 93 12/15/16 02:00 97.8 59 19 154/82 96 12/15/16 00:00 97.2 58 20 158/78 94 12/14/16 22:00 98.0 59 20 169/85 94 12/14/16 20:40 98 21 12/14/16 20:01 63 12/14/16 20:00 97.8 65 20 180/83 96 12/14/16 17:38 68 16 168/84 97 Room Air 12/14/16 14:47 98 12/14/16 14:47 66 16 98 Room Air 12/14/16 14:40 98.3 66 16 175/77 98 General: Alert and Oriented, No acute distress Eye: EOMI Respiratory: Non-labored respirations Musculoskeletal: ROM Neurologic: Alert, Oriented, Normal sensory, Normal motor, No focal defects, CN II-XII intact, Gag reflex normal Psychiatric: Cooperative, Appropriate mood & affect, Normal judgement, Non- suicidal Exam Comments ox 3, no aphasia, articulate, mildly anxious, no temp tenderness, vff, ou 2- 1.5mm, face sym, sensory nml, no neglect, motor 5/5 sym, no drift, left leg alittle brisker then right. gait not assessed 2/2 fall risk Review/Management Diagnosis/Plan: (1) TIA (transient ischemic attack) Plan: possible rt hemispheric tia's purse sensory which positional effect, r/o hemodynamically significant stenosis anxiety may be playing a role recs add aspirin 81mg qd check mri/mra/carotid lipids tele p.t. follow exam anticipate d/c in am f/u outpatient in 1-2 weeks (2) Anxiety Plan: buspirone (3) Atrial fibrillation Plan: eliquis bid (4) Hypertension Plan: goal <140/90 (5) Hyperlipidemia Plan: ldl <70 Problem Qualifiers (1) TIA (transient ischemic attack): Qualified Code: G45.9 - Transient cerebral ischemia, unspecified type (2) Atrial fibrillation: Qualified Code: I48.91 - Atrial fibrillation, unspecified type (3) Hypertension: Qualified Code: I15.9 - Secondary hypertension (4) Hyperlipidemia: Qualified Code: E78.5 - Hyperlipidemia, unspecified hyperlipidemia type Rafael Borges MD Dec 15, 2016 08:26
[2016-12-15] MEDS ORDERED: PANTOPRAZOLE SOD 20 MG DELAYED RELEASE TAB PO SCH (09:00)
[2016-12-15] MEDS ORDERED: ASPIRIN 325 MG TAB PO SCH (09:00)
[2016-12-15] MEDS ORDERED: ASPIRIN 81 MG CHEW TAB PO SCH (09:00)
[2016-12-15] MEDS ORDERED: PRAVASTATIN SOD 20 MG TAB PO SCH (09:00)
[2016-12-15] MEDS: SODIUM CHLORIDE 0.9% FLUSH 10 ML FLUSH IV FLUSH SCH (09:00)
[2016-12-15] MEDS: busPIRone HCL 10 MG TAB PO SCH (09:22)
[2016-12-15] MEDS: APIXABAN 5 MG TABLET PO SCH (09:22)
[2016-12-15 09:23] LABS: HDL CHOLESTEROL 63.8 MG/DL (40.0-60.0)
--- NOTE | 2016-12-15 11:05 | RADHPO ---
EXAM DATE/TIME: 12/15/2016 10:21 [facility] COMPARISON: US CAROTID ARTERIES, August 13, 2015, 15:39. INDICATIONS : Transient ischemic attack. MEDICAL HISTORY : Hypertension. Diverticulitis. Arthritis. CVA. Afib. Chest pain. Anxiety. Asthma. Perforated colon. An ticoagulant therapy. SURGICAL HISTORY : Appendectomy. Cholecystectomy. Hysterectomy. Colon resection. ENCOUNTER: Initial ACUITY: 4-6 days PAIN SCORE: 2/10 LOCATION: Bilateral neck PEAK SYSTOLIC VELOCITIES (cm/sec): ICA/CCA RATIO: Right: 1.6 Left: 1.1 ICA: Right: 98 Left: 90 CCA: Right: 60 Left: 85 ECA: Right: 63 Left: 80 VERTEBRAL: Right: 51 antegrade Left: 48 antegrade Elevated flow velocities and ICA/CCA ratios have been found to correlate with increased degrees of vessel stenosis, calculated as percentage of diameter relative to a normal segment of distal ICA/CCA FINDINGS: Ultrasound of the carotid arteries was performed bilaterally using real-time Doppler and color Dopple r imaging. Examination of the right carotid artery demonstrates mild fibrous plaque within the bifurcation. No w aveform abnormalities are identified and no spectral broadening is seen. Examination of the left dong tid artery demonstrates mild fibrous plaque within the bulb. No waveform abnormalities are identified and no spectral broadening is seen. There is antegrade flow in both vertebral arteries. CONCLUSION: No evidence of hemodynamically significant lesion. Marciano Small MD on December 15, 2016 at 11:03 Board Certified Radiologist. This report was verified electronically.
--- NOTE | 2016-12-15 13:14 | EC ---
Study Study Date:12/15/2016 STUDY CONCLUSIONS SUMMARY - Left ventricle: The cavity size was normal. Wall thickness was increased in a pattern of mild LVH. Systolic function was normal. The estimated ejection fraction was in the range of 60% to 65%. Wall motion was normal; there were no regional wall motion abnormalities. - Mitral valve: Valve area by pressure half-time: 2.34cm^2. If LV function is below 40, please consider prescribing an ACEI or ARB or document rationale for non-use. PROCEDURE DATA STUDY STATUS: Elective. Procedure: Transthoracic echocardiography. Image quality was good. Scanning was performed from the parasternal, apical, and subcostal acoustic windows. Study completion: The patient tolerated the procedure well. Transthoracic echocardiography. M-mode, complete 2D, complete spectral Doppler, and color Doppler. Height: Height: 66in. Weight: Weight: 186.6lb. Body mass index: BMI: 30.2kg/m^2. Body surface area: BSA: 1.94m^2. Patient status: Inpatient. CARDIAC ANATOMY LEFT VENTRICLE: The cavity size was normal. Wall thickness was increased in a pattern of mild LVH. Systolic function was normal. The estimated ejection fraction was in the range of 60% to 65%. Wall motion was normal; there were no regional wall motion abnormalities. AORTIC VALVE: Trileaflet; mildly thickened leaflets. Doppler: Transvalvular velocity was within the normal range. There was no stenosis. No regurgitation. AORTA: Aortic root: The aortic root was normal in size and mildly calcified. MITRAL VALVE: Structurally normal valve. Doppler: Transvalvular velocity was within the normal range. There was no evidence for stenosis. No regurgitation. Valve area by pressure half-time: 2.34cm^2. Indexed valve area by pressure half-time: 1.21cm^2/m^2. Peak gradient: 4mm Hg (D). LEFT ATRIUM: The atrium was normal in size. RIGHT VENTRICLE: The cavity size was normal. Wall thickness was normal. PULMONIC VALVE: Doppler: Transvalvular velocity was within the normal range. There was no evidence for stenosis. No regurgitation. TRICUSPID VALVE: Structurally normal valve. Doppler: Transvalvular velocity was within the normal range. Trace to mild regurgitation. Peak gradient: 23mm Hg (D). PULMONARY ARTERY: The main pulmonary artery was normal-sized. Systolic pressure was within the normal range. RIGHT ATRIUM: The atrium was normal in size. PERICARDIUM: There was no pericardial effusion. SYSTEMIC VEINS: Inferior vena cava: The vessel was normal in size. Patient weight: 186.6lb _Ejection fraction:_ 65-75% _Fractional shortening:_ 32% up to 5Kg 5-11.5Kg 11.6-22.9Kg 23-45Kg 45-57Kg Aortic Root 7-13 <17 13-22 17-27 17-27 LA diam 6-13 <23 24-38 33-47 37-40 RVID 10-17 7-15 7-15 7-18 8-17 LVIDd 12-22 <32 24-38 33-47 37-40 LVPW 2-4 3-6 5-7 6-8 7-8 IVS 2-4 3-6 5-7 6-8 7-8 BASIC MEASUREMENTS ADULT NORMAL Left ventricle LV internal dimension, ED, chordal 48.5 mm 43-52 level, PLAX LV internal dimension, ES, chordal 30.8 mm 23-38 level, PLAX Fractional shortening, chordal level, 36 % >29 PLAX LV posterior wall thickness, ED 11.9 mm IVS/LVPW ratio, ED 1.02 <1.3 Ventricular septum Septal thickness, ED 12.1 mm Aortic valve Leaflet separation 16 mm 15-26 Left atrium Anterior-posterior dimension 30 mm Anterior-posterior dimension index 1.55 cm/m^2 <2.2 Right ventricle RV internal dimension, ED, PLAX 23.7 mm 19-38 BASIC MEASUREMENTS ADULT NORMAL Aortic valve Leaflet separation 16 mm 15-26 Aorta Root diameter, ED 32 mm 20-37 DOPPLER MEASUREMENTS ADULT NORMAL Aortic valve Peak velocity, S 129 cm/s Mitral valve Peak E-wave velocity 95.8 cm/s Peak A-wave velocity 100 cm/s Pressure half-time 94 ms Peak gradient, D 4 mm Hg Peak E/A ratio 1 Valve area, pressure half-time 2.34 cm^2 Valve area index, pressure half-time 1.21 cm^2/m^2 Tricuspid valve Peak gradient, D 23 mm Hg Maximal inflow velocity 240 cm/s Systemic veins Estimated CVP 10 mm Hg LEGEND: Mean values are shown as u=mean value. Asterisk (*) razo values outside specified normal range. Prepared and signed by Kyler Lester [id number]
--- NOTE | 2016-12-15 14:12 | RADHPO ---
EXAM DATE/TIME: 12/15/2016 12:30 [facility] COMPARISON: MRI BRAIN W/O CONTRAST, August 13, 2015, 16:59. INDICATIONS : Left sided weakness. Left foot numb. MEDICAL HISTORY : Hypertension. SURGICAL HISTORY : Appendectomy. Colon resection. Cholecystectomy. ENCOUNTER: Initial ACUITY: 2 day PAIN SCORE: 0/10 LOCATION: head TECHNIQUE: Multiplanar, multisequence MRI of the brain was performed without contrast. FINDINGS: MRI of the brain is performed in sagittal, axial and coronal planes. The craniocervical junction and midline structures are unremarkable. Diffusion weighted images demonstrate a small A. restricted diff usion adjacent to the body the right lateral ventricle characteristic of the white matter infarct.. T here is no evidence of acute cortical infarction, acute hemorrhage, mass effect or midline shift is s een. The craniocervical junction and midline structures are unremarkable with the exception of an emp ty sella which can be seen as a normal variation. There is periventricular hyperintensity on the T2 w eighted images consistent with small vessel vascular disease significantly more than expected in a pa tient of this age. Posterior fossa structures are unremarkable. CONCLUSION: 1. Small area of white matter infarct adjacent to the atria the right lateral ventricle. Marciano Small MD on December 15, 2016 at 14:01 Board Certified Radiologist. This report was verified electronically.
--- NOTE | 2016-12-15 14:20 | RADHPO ---
EXAM DATE/TIME: 12/15/2016 12:30 [facility] COMPARISON: MRI BRAIN W/O CONTRAST, December 15, 2016, 12:30. INDICATIONS : Left sided weakness. MEDICAL HISTORY : Hypertension. SURGICAL HISTORY : Appendectomy. Colon resection. Cholecystectomy. ENCOUNTER: Initial ACUITY: 2 day PAIN SCORE: 0/10 LOCATION: head Please note a normal MRA of the brain does not entirely exclude the possibility of a small aneurysm, nor the possibility of distal intracranial vessel disease. TECHNIQUE: 3D time of flight MRA was performed. Source images, multiplanar STS MIP, and 3D volume MIP reconstru ctions were reviewed. FINDINGS: There is excellent visualization of the major intracranial arteries out to the second-order branch ve ssels. There is poor signal within the superior segment of the M2 branches on the right. The remainin g intracranial vessels showed normal signal. 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 Atherosclerotic changes are seen invol ving the proximal right A1 segment generating a moderate stenosis. Atherosclerotic changes are seen i nvolving the intracavernous ICA is bilaterally without significant stenosis. Both vertebral arteries are normal in caliber and contribute in the basilar. No aneurysm or arteriovenous malformation. CONCLUSION: 1. Scattered atherosclerotic disease with areas of stenosis within the superior segment of the right M2 as well as the right A1. Nomi Caballero Jr., MD on December 15, 2016 at 14:11 Board Certified Radiologist. This report was verified electronically.
--- NOTE | 2016-12-15 15:54 | HHI.PR ---
Subjective Remarks Patient seen and examined today with Dr. Reece. Patient states that she is doing better. No longer scratching any weakness able to walk around the hallway without any problems. Patient states that she still has some numbness in the left foot. Objective Vitals Vital Signs Date Time Temp Pulse Resp B/P Pulse Ox O2 Delivery O2 Flow Rate FiO2 12/15/16 12:00 95.5 59 18 163/82 97 12/15/16 08:27 57 12/15/16 08:00 98.0 58 18 180/84 94 12/15/16 06:00 98.2 55 20 162/80 96 12/15/16 04:00 98.2 58 18 158/87 93 12/15/16 02:00 97.8 59 19 154/82 96 12/15/16 00:00 97.2 58 20 158/78 94 12/14/16 22:00 98.0 59 20 169/85 94 12/14/16 20:40 98 21 12/14/16 20:01 63 12/14/16 20:00 97.8 65 20 180/83 96 12/14/16 17:38 68 16 168/84 97 Room Air I/O 12/14/16 12/14/16 12/14/16 12/15/16 12/15/16 12/15/16 07:00 15:00 23:00 07:00 15:00 23:00 Intake Total 120 ml 0 ml 0 ml Balance 120 ml 0 ml 0 ml Intake Oral 120 ml 0 ml IV Total 0 ml 0 ml # Voids 3 3 # Bowel Movements 0 0 Result Diagram: 12/15/16 0612/15/16 0600 Objective Remarks GENERAL: Well-developed, well-nourished, in no acute distress. alert and orientated HEENT: Head is normocephalic without any lesions or masses noted. Facial features are symmetric. Eyes: Extraocular muscles are intact. Conjunctivae were clear. NECK: Supple without any masses. Trachea midline no deviation. No JVD, CARDIAC: Regular rhythm, regular rate. S1/S2 are heard. No murmurs gallops or rubs. LUNGS: Clear to auscultation bilaterally. No wheeze, rhonchi or rales. No use of accessory muscles on inspiration or expiration. ABDOMEN: Soft, nontender. Nondistended. Bowel sounds heard in all 4 quadrants. No organomegaly or masses. Negative rebound, negative guarding EXTREMITIES: No edema, pulses are equal bilaterally. No cyanosis or clubbing NEUROLOGY: Mood and affect appear appropriate. Cranial nerves II through XII grossly intact. Moving all extremities, speech is clear Urinary Catheter: No Vascular Central Line Catheter: No A/P Assessment and Plan 1. Acute right sided CVA: Presented with Left arm and left leg numbness and weakness: CT scan was done with repeat 24 hours later without any acute abnormality. MRI of brain does indicate small area of white matter infarct adjacent to atria the right lateral ventricle. MRA of the brain indicate scattered atherosclerotic disease and areas of stenosis within superior segment of right M2 as well as right A1, carotid ultrasound was normal, echocardiogram indicates left ventricular hypertrophy, systolic function was normal, ejection fraction 60-65%. No acute abnormalities., laboratory studies to include B12, folate, sedimentation rate, TSH, lipid panel were normal. PT/OT/ST evaluations do not indicate need for outpatient recommendations. Neurology has seen the patient. I discussed with them directly up outpatient findings and recommended the use of Aggrenox twice daily in addition to patient's Eliquis with outpatient follow-up in 2 weeks. 2. Hypertension, hyperlipidemia, history of a defibrillation: Resume statin, resume anticoagulation: Lipid panel was done which indicates LDL 66 3. DVT prevention: Patient on Eliquis Written by Mauricio Chaparro, acting as scribe for Dr. Reece on 12/15/16 at 15:53. All or portions of this note were transcribed by scribe Mauricio Chaparro. I, Dr. Mauricio Reece personally performed the history, physical exam, and medical decision making; and confirmed the accuracy of the information in the transcribed note. Authenticated by Dr. Mauricio Reece on 12/15/16 at 16:42. Discharge Planning Discharge home in stable condition Activity: Ad daya. Diet: Healthy heart diet Medications per medication reconciliation Follow-up primary medical doctor in one week, neurologist in 2 weeks Mauricio Chaparro Dec 15, 2016 15:54 Mauricio Reece MD Dec 15, 2016 16:42
[2016-12-15] MEDS ORDERED: AGGR20025 PO (15:55)
--- NOTE | 2016-12-15 15:55 | HHI.DCPOC ---
Discharge Care Plan Diagnosis: (1) Cerebrovascular accident Goals to Promote Your Health * To prevent worsening of your condition and complications * To maintain your health at the optimal level Directions to Meet Your Goals Take your medications as prescribed Follow your dietary instruction Follow activity as directed Keep your appointments as scheduled Take your immunizations and boosters as scheduled If your symptoms worsen call your PCP, if no PCP go to Urgent Care Center or Emergency Room Smoking is Dangerous to Your Health. Avoid second hand smoke Call the 24-hour hour crisis hotline for domestic abuse at Mauricio Chaparro Dec 15, 2016 15:55
[2016-12-15] MEDS ORDERED: ACETAMINOPHEN 325 MG TAB PO ONE (16:00)
[2016-12-15] MEDS ORDERED: DIPYRIDAMOLE/ASPIRIN 200 MG/25 MG CAP PO SCH (21:00)
== END 2016-12-15 16:30 | disposition home or self-care (01) | DRG 65 ==
LOC: PHED 14:24 → PHEDA 17:08 → OBSVTOIN 17:16 → PH3B 18:49
PROVIDERS: ADMIT Family Medicine; ATTEND Family Medicine
DX: I63.9 Cerebral infarction, unspecified (principal); E87.1 Hypo-osmolality and hyponatremia; I48.2 Chronic atrial fibrillation; I11.9 Hypertensive heart disease without heart failure; I67.2 Cerebral atherosclerosis; F41.9 Anxiety disorder, unspecified; E78.5 Hyperlipidemia, unspecified; M17.0 Bilateral primary osteoarthritis of knee; J42 Unspecified chronic bronchitis; Z79.01 Long term (current) use of anticoagulants; Z80.0 Family history of malignant neoplasm of digestive organs; Z82.3 Family history of stroke; Z82.49 Family history of ischemic heart disease and other diseases of the circulatory system; Z86.73 Personal history of transient ischemic attack (TIA), and cerebral infarction without residual deficits; Z90.49 Acquired absence of other specified parts of digestive tract
CPT/HCPCS: 70450; 70544; 70551; 71010; 72100; 72125; 72148; 80048; 80053; 80061; 81001; 82550; 82607; 82746; 82948; 83036; 83735; 84443; 84484; 85025; 85610; 85652; 85730; 93005; 93306; 93880; 94150; J7040

== ENCOUNTER 2017-07-26 20:35 | Emergency (ER) | payer MEDICARE, OTHER ==
[~2017-07-26] VITALS: Ht 170.2 cm; Wt 68.0 kg
[~2017-07-26 20:35] MED LIST changes: +AGGR20025 PO; -MEDR4PAK PO; -OMEP20TA PO; +OMEP20TA93 PO
[2017-07-26 20:45] VITALS: BP 199/88; PULSE 71; RESP 18; O2SAT 94
[2017-07-26] MEDS ORDERED: ZOLO50TA PO (20:55)
--- NOTE | 2017-07-26 21:08 | PD ---
HPI Chief Complaint: General Weakness Time Seen by Provider: 21:03 Travel History International Travel<30 days: No Contact w/Intl Traveler<30days: No Traveled to known affect area: No History of Present Illness HPI The patient is an 82 year old female who presents to the [facility] emergency department with a history of reportedly having onset of tingling sensations in her lower extremities that began at approximately 6:30 PM today. She reports that after developing a tingling sensations in both feet and lower legs she then began to have weakness in bilateral lower legs. She denies having any numbness or tingling to her arms. She denies having any weakness in her arms. She reports that she did have an episode of chills and also began to feel anxious. She reports that she does have a history of anxiety and is on Zoloft for this. She denies having any chest pain, chest pressure, or shortness of breath. She denies having any facial droop, difficulty with word finding ability, dizziness, or vision changes associated with this. She is chronically anticoagulated on Eliquis related to a history of atrial fibrillation. Her field mechanic/site lead Dr. De Leon. On review of systems otherwise, the patient denies having any known recent fevers, cough, congestion, neck pain , abdominal pain, vomiting, diarrhea, urinary symptoms, or other neurologic symptoms. FORMERLY [facility], [facility] Past Medical History Narrative Medical The patient's past medical history is significant for hypertension, atrial fibrillation chronically anticoagulated on Eliquis, anxiety disorder, hyperlipidemia, history of TIAs, history of diverticulitis, history of chronic bronchitis. Hx Anticoagulant Therapy: Yes Arthritis: Yes (BILATERAL KNEES) Asthma: Yes Anxiety: Yes Depression: No Heart Rhythm Problems: Yes (AFIB) Cancer: No Cardiac Catheterization: No Cardiovascular Problems: Yes High Cholesterol: No Chest Pain: Yes (ANXIETY RELATED) Congestive Heart Failure: No Cerebrovascular Accident: Yes Diabetes: No Diminished Hearing: No Diverticulitis: Yes (PERFORATED COLON) Endocrine: No Gastrointestinal Disorders: Yes (colon resection) Genitourinary: No Heparin Induced Thrombocytopen: No Hypertension: Yes Immune Disorder: No Implanted Vascular Access Dvce: No Musculoskeletal: Yes Neurologic: Yes Psychiatric: Yes Reproductive: No Respiratory: No Thyroid Disease: No Menopausal: Yes Past Surgical History Narrative Surgical The patient's past surgical history is significant for appendectomy, partial colon resection related to diverticulitis, hysterectomy, cholecystectomy. Abdominal Surgery: Yes (COLON RESECTION, APPENDECTOMY, CHOLEYSTECTOMY) Appendectomy: Yes Cardiac Surgery: No Cholecystectomy: Yes Coronary Artery Bypass Graft: No Ear Surgery: No Endocrine Surgery: No Eye Surgery: No Genitourinary Surgery: No Gynecologic Surgery: Yes (HYSTERECTOMY) Hysterectomy: Yes Oral Surgery: No Thoracic Surgery: No Other Surgery: Yes (COLON RESECTION) Social History Alcohol Use: Yes (occasional wine) Tobacco Use: No Substance Use: No Allergies-Medications (Allergen,Severity, Reaction): Coded Allergies: No Known Allergies (Verified , 12/14/16) Reported Meds & Prescriptions Reported Meds & Active Scripts Active Reported Zoloft (Sertraline HCl) 50 Mg Tab 50 Mg PO BID Diltiazem (Diltiazem HCl) 30 Mg Tab 10 Mg PO BID Omeprazole 20 Mg Tab 20 Mg PO DAILY Fosamax (Alendronate Sodium) 70 Mg Tab 70 Mg PO WEEKLY Azelastine Nasal Wingate (Azelastine HCl) 0.1% Wingate 1 Wingate EACH NARE HS PRN Montelukast (Montelukast Sodium) 10 Mg Tab 10 Mg PO HS PRN Flonase Nasal Wingate (Fluticasone Nasal Wingate) 50 Mcg/Act Wingate 1 Wingate EACH NARE DAILY Eliquis (Apixaban) 5 Mg Tab 5 Mg PO Q12HR Lovastatin 20 Mg Tab 20 Mg PO DAILY Review of Systems Except as stated in HPI: all other systems reviewed are Neg General / Constitutional: No: Fever Eyes: No: Visual changes HENT: No: Headaches Cardiovascular: No: Chest Pain or Discomfort Respiratory: No: Shortness of Breath Gastrointestinal: No: Abdominal Pain Genitourinary: No: Dysuria Musculoskeletal: No: Pain Skin: No Rash Neurologic: Positive: Weakness (weakness of the lower extremities), Paresthesia , No: Focal Abnormalities, Change in Mentation, Slurred Speech Psychiatric: No: Depression Endocrine: No: Polydipsia Hematologic/Lymphatic: No: Easy Bruising Physical Exam Narrative General: The patient is a well-developed well-nourished female in no acute distress. Head and Neck exam: Head is normocephalic atraumatic. Eyes: EOMI, pupils are equal round and reactive to light. Nose: Midline septum with pink mucous membranes Mouth: Dentition unremarkable. Moist mucus membranes. Posterior oropharynx is not erythematous. No tonsillar hypertrophy. Uvula midline. Airway patent. Neck: No palpable lymphadenopathy. No nuchal rigidity. No thyromegaly. Cardiovascular: Regular rate and rhythm with a 1/6 systolic murmur. No gallops or rubs. Lungs: Clear to auscultation bilaterally. No wheezes, rhonchi, or rales. Abdomen: Soft, without tenderness to palpation in all 4 quadrants of the abdomen. No guarding, rebound, or rigidity. Normal bowel sounds are audible. No tenderness on palpation of McBurney's point. Extremities: No clubbing, cyanosis, or edema. 2+ pulses in all 4 extremities. No calf tenderness on palpation. Back: No spinous process tenderness to palpation. No costovertebral angle tenderness to palpation. Neurologic Exam: Cranial nerves 2-12 were intact on exam. Strength is 5/5 in all 4 extremities. No sensory deficits noted. Skin Exam: No rash noted. Intact skin that is warm and dry. Data Data Last Documented VS Vital Signs Date Time Temp Pulse Resp B/P (MAP) Pulse Ox O2 Delivery O2 Flow Rate FiO2 07/26/17 20:47 95 Room Air 07/26/17 20:45 71 18 199/88 (125) Orders Orders Electrocardiogram (07/26/17 21:17) Complete Blood Count With Diff (07/26/17 21:17) Comprehensive Metabolic Panel (07/26/17 21:17) Creatine Kinase (Cpk) (07/26/17 21:17) Ckmb (Isoenzyme) Profile (07/26/17 21:17) Troponin I (07/26/17 21:17) B-Type Natriuretic Peptide (07/26/17 21:17) Prothrombin Time / Inr (Pt) (07/26/17 21:17) Act Partial Throm Time (Ptt) (07/26/17 21:17) Lipase (07/26/17 21:17) Urinalysis - C+S If Indicated (07/26/17 21:17) Magnesium (Mg) (07/26/17 21:17) Thyroid Stimulating Hormone (07/26/17 21:17) Chest, Single Ap (07/26/17 21:17) Ct Brain W/O Iv Contrast(Rout) (07/26/17 21:17) Iv Access Insert/Monitor (07/26/17 21:17) Ecg Monitoring (07/26/17 21:17) Oximetry (07/26/17 21:17) Sodium Chlorid 0.9% 500 Ml Inj (Ns 500 M (07/26/17 22:45) Ed Discharge Order (07/26/17 23:42) Labs Laboratory Tests Test 07/26/17 21:00 White Blood Count 8.7 TH/MM3 Red Blood Count 4.37 MIL/MM3 Hemoglobin 13.8 GM/DL Hematocrit 40.8 % Mean Corpuscular Volume 93.5 FL Mean Corpuscular Hemoglobin 31.6 PG Mean Corpuscular Hemoglobin Concent 33.8 % Red Cell Distribution Width 12.9 % Platelet Count 207 TH/MM3 Mean Platelet Volume 8.1 FL Neutrophils (%) (Auto) 71.8 % Lymphocytes (%) (Auto) 18.1 % Monocytes (%) (Auto) 8.7 % Eosinophils (%) (Auto) 0.8 % Basophils (%) (Auto) 0.6 % Neutrophils # (Auto) 6.2 TH/MM3 Lymphocytes # (Auto) 1.6 TH/MM3 Monocytes # (Auto) 0.8 TH/MM3 Eosinophils # (Auto) 0.1 TH/MM3 Basophils # (Auto) 0.1 TH/MM3 CBC Comment DIFF FINAL Differential Comment Prothrombin Time 11.0 SEC Prothromb Time International Ratio 1.0 RATIO Activated Partial Thromboplast Time 29.4 SEC Blood Urea Nitrogen 19 MG/DL Creatinine 0.91 MG/DL Random Glucose 143 MG/DL Total Protein 7.2 GM/DL Albumin 4.0 GM/DL Calcium Level 9.0 MG/DL Magnesium Level 1.8 MG/DL Alkaline Phosphatase 77 U/L Aspartate Amino Transf (AST/SGOT) 20 U/L Alanine Aminotransferase (ALT/SGPT) 24 U/L Total Bilirubin 0.8 MG/DL Sodium Level 127 MEQ/L Potassium Level 4.1 MEQ/L Chloride Level 94 MEQ/L Carbon Dioxide Level 25.1 MEQ/L Anion Gap 8 MEQ/L Estimat Glomerular Filtration Rate 59 ML/MIN Total Creatine Kinase 78 U/L Troponin I LESS THAN 0.02 NG/ML B-Type Natriuretic Peptide 129 PG/ML Lipase 166 U/L Thyroid Stimulating Hormone 3rd Gen 2.590 uIU/ML MDM Medical Decision Making Medical Screen Exam Complete: Yes Emergency Medical Condition: Yes Medical Record Reviewed: Yes Interpretation(s) Last Impressions Head CT 07/26/172116 Signed Impressions: Service Date/Time: Wednesday, July 26, 2017 21:39 - CONCLUSION: 1. No acute intracranial abnormality. 2. Atrophy and chronic small vessel ischemic change. Nomi Caballero Jr., MD Chest X-Ray 07/26/172116 Signed Impressions: Service Date/Time: Wednesday, July 26, 2017 21:52 - CONCLUSION: Right infrahilar infiltrate. Nomi Caballero Jr., MD Differential Diagnosis Electrolyte derangements, versus intracranial abnormality such as hemorrhage, neuropathy Narrative Course During the course of the patients emergency department visit, the patients history, examination, and differential diagnosis were reviewed with the patient. The patient was placed on a squad leader with oximetry and frequent blood pressure monitoring. The patient had IV access obtained and blood work sent for analysis. The patient had an ECG done on arrival. The patient's ECG reveals a sinus rhythm heart rate of 70, QRS duration 94 ms, QTC 407 ms, no acute ST segment elevation or depression. The patient was initially provided normal saline a 500 mL bolus 1. The patient was given by mouth fluids for hydration. The patients laboratory studies were reviewed and remarkable for a white count of 8.7, hemoglobin 13.8, platelets 207 with 71.8 neutrophils. CMP is remarkable for a sodium of 127, on last evaluation her sodium was 131. Chloride 94, BUN 19, Herbert 143, CPK 78, troponin I less than 0.02, BNP 129, lipase 166, TSH 2.59. PT PTT unremarkable. Radiology studies were reviewed and remarkable for a chest x-ray that shows atelectasis/infiltrate the right infrahilar area. The patient denies having any cough or congestion. The patient has not had any fevers or elevated white count, therefore I suspect that this is atelectasis instead of infiltrate. CT scan of the brain shows no acute intracranial abnormality. On reexamination, the patient reported that she was feeling improved, the symptoms have resolved. We discussed the fact that her sodium being low or could be causing some of her symptoms. She will discuss this further with her primary care physician. She was offered admission at this time, however she reports that she feels well and prefers to follow-up as an outpatient. The patient was instructed to follow-up with her primary care physician regarding this emergency department visit by phone in the morning. She was instructed to discuss further with her primary care physician the fact that she does have mild hyponatremia and will need her sodium level rechecked. She was instructed that if she continues to have a lower sodium her medication regimen may need to be altered to prevent this from worsening. The patient is resting comfortably and feels better, is alert and in no distress. The patients results and examination findings were discussed with the patient. The repeat examination is unremarkable and benign. The history, exam, diagnostic testing, and current condition do not suggest any significant pathology to warrant further testing, continued ED treatment, admission, or surgical evaluation at this point. The vital signs have been stable. The patient does not have uncontrollable pain, intractable vomiting, or other significant symptoms. The patient's condition is stable and appropriate for discharge. The patient will pursue further outpatient evaluation with a primary care physician or other designated or consulting physician as indicated in the discharge instructions. The patient expressed understanding and was agreeable with this plan. Diagnosis Primary Impression: Generalized weakness Additional Impressions: Paresthesias Hyponatremia Referrals: Primary Care Physician 1 day Patient Instructions: General Instructions, Hyponatremia (ED), Paresthesia (ED) , Weakness (ED) Additional Instructions: The patient was instructed to follow-up with her primary care physician regarding this emergency department visit by phone in the morning. She was instructed to discuss further with her primary care physician the fact that she does have mild hyponatremia and will need her sodium level rechecked. She was instructed that if she continues to have a lower sodium her medication regimen may need to be altered to prevent this from worsening. Med/Other Pt SpecificInfo: No Change to Meds Disposition: 01 DISCHARGE HOME Condition: Stable Lidia Lester MD Jul 26, 2017 21:08
[2017-07-26 21:51] LABS: AUTOMATED NEUTROPHIL # 6.2 TH/MM3 (1.8-7.7); BASOPHIL # 0.1 TH/MM3 (0-0.2); BASOPHIL % 0.6 % (0.0-2.0); EOSINOPHIL # 0.1 TH/MM3 (0-0.4); EOSINOPHIL % 0.8 % (0.0-4.0); HEMATOCRIT 40.8 % (35.0-46.0); HEMO FLAGS DIFF FINAL; LYMPH % 18.1 % (9.0-44.0); LYMPHOCYTE # 1.6 TH/MM3 (1.0-4.8); MEAN CELL VOLUME 93.5 FL (80.0-100.0); MEAN CORPUSCULAR HEMOGLOBIN 31.6 PG (27.0-34.0); MEAN CORPUSCULAR HGB CONC 33.8 % (32.0-36.0); MONO % 8.7 % (0.0-8.0); NEUT % 71.8 % (16.0-70.0); PLATELET COUNT 207 TH/MM3 (150-450); RED BLOOD COUNT 4.37 MIL/MM3 (4.00-5.30); RED CELL DISTRIBUTION WIDTH 12.9 % (11.6-17.2); WHITE BLOOD COUNT 8.7 TH/MM3 (4.0-11.0)
[2017-07-26 21:57] LABS: APTT (PATIENT) 29.4 SEC (24.3-30.1)
[2017-07-26 21:58] LABS: ALT (GPT) 24 U/L (10-53); ANION GAP 8 MEQ/L (5-15); AST (GOT) 20 U/L (15-37); BICARBONATE 25.1 MEQ/L (21.0-32.0); BLOOD UREA NITROGEN 19 MG/DL (7-18); CHLORIDE 94 MEQ/L (98-107); GLOMERULAR FILTRATION RATE 59 ML/MIN (>89); MAGNESIUM 1.8 MG/DL (1.5-2.5); POTASSIUM 4.1 MEQ/L (3.5-5.1); SODIUM (NA) 127 MEQ/L (136-145)
--- NOTE | 2017-07-26 22:06 | RADRPT ---
EXAM DATE/TIME: 07/26/2017 21:39 [facility] COMPARISON: CT BRAIN W/O CONTRAST, December 14, 2016, 15:29. INDICATIONS : General weakness. RADIATION DOSE: 56.77 CTDIvol (mGy) MEDICAL HISTORY : Hypertension. CVA. SURGICAL HISTORY : None. ENCOUNTER: Initial ACUITY: 1 day PAIN SCALE: 0/10 LOCATION: cranial TECHNIQUE: Multiple contiguous axial images were obtained of the head. Using automated exposure control and adj ustment of the mA and/or kV according to patient size, radiation dose was kept as low as reasonably a chievable to obtain optimal diagnostic quality images. DICOM format image data is available electro nically for review and comparison. FINDINGS: CEREBRUM: Atrophy. Periventricular low attenuation change involving both cerebral hemispheres. Small chronic la cunar arch and involving the basal ganglia bilaterally. The ventricles are normal for age. No eviden ce of midline shift, mass lesion, hemorrhage or acute infarction. No extra-axial fluid collections a re seen. POSTERIOR FOSSA: The cerebellum and brainstem are intact. The 4th ventricle is midline. The cerebellopontine angle i s unremarkable. EXTRACRANIAL: The visualized portion of the orbits is intact. SKULL: The calvaria is intact. No evidence of skull fracture. CONCLUSION: 1. No acute intracranial abnormality. 2. Atrophy and chronic small vessel ischemic change. Nomi Caballero Jr., MD on July 26, 2017 at 22:02 Board Certified Radiologist. This report was verified electronically.
[2017-07-26 22:07] LABS: ALKALINE PHOSPHATASE 77 U/L (45-117); TOTAL BILIRUBIN ADULT 0.8 MG/DL (0.2-1.0)
[2017-07-26 22:11] LABS: CREATINE KINASE 78 U/L (26-192)
--- NOTE | 2017-07-26 22:14 | RADRPT ---
EXAM DATE/TIME: 07/26/2017 21:52 [facility] COMPARISON: CHEST SINGLE AP, December 14, 2016, 14:44. INDICATIONS : Syncope, increased weakness. MEDICAL HISTORY : Hypertension. SURGICAL HISTORY : None. ENCOUNTER: Initial ACUITY: 1 day PAIN SCORE: 0/10 LOCATION: Bilateral chest FINDINGS: A single portable frontal view of the chest shows infrahilar opacity involving the right. Left lung i s clear. No effusions. Heart is normal in size. Bony structures are unremarkable. CONCLUSION: Right infrahilar infiltrate. Nomi Caballero Jr., MD on July 26, 2017 at 22:11 Board Certified Radiologist. This report was verified electronically.
[2017-07-26] MEDS ORDERED: SODIUM CHLORID 0.9% 500 ML INJ 500 ML IV ONE (22:45)
--- NOTE | 2017-07-27 09:41 | EKG ---
Date Performed: 07/26/2017 Time Performed: 21:10:20 PTAGE: 82 years EKG: Sinus rhythm PROBABLE INFERIOR MYOCARDIAL INFARCTION ABNORMAL ECG PREVIOUS TRACING : 12/14/2016 14.45 DOCTOR: Sukhdeep Louie Interpretating Date/Time 07/27/2017 09:36:33
== END 2017-07-27 00:40 | disposition home or self-care (01) ==
LOC: NEPE 20:35
DX: E87.1 Hypo-osmolality and hyponatremia (principal); R53.1 Weakness; R20.9 Unspecified disturbances of skin sensation; I48.91 Unspecified atrial fibrillation; F41.9 Anxiety disorder, unspecified; Z79.01 Long term (current) use of anticoagulants
CPT/HCPCS: 70450; 71010; 80053; 82550; 83690; 83735; 83880; 84443; 84484; 85025; 85610; 85730; 93005; 99285; J7040

== ENCOUNTER 2017-09-04 12:37 | Observation (INO) | payer OTHER ==
[2017-09-04] VITALS (9 sets, daily range): BP systolic 141–194; BP diastolic 71–84; PULSE 58–83; RESP 16–20; TEMP 97–98.2; O2SAT 93–95
[~2017-09-04] VITALS: Ht 167.6 cm; Wt 85.7 kg
[~2017-09-04 12:37] MED LIST changes: -ACET-703 PO; -AGGR20025 PO; -BUSP10TA PO; -CETI1TAB39 PO; +ZOLO50TA PO
[2017-09-04] MEDS ORDERED: NITROGLYCERIN 2% OINT 1 GM PACKET TOP ONE (13:00)
[2017-09-04] MEDS ORDERED: NITROGLYCERIN 0.4 MG SL 25 TABS/BTL SL ONE (13:00)
[2017-09-04] MEDS ORDERED: ASPIRIN 81 MG CHEW TAB PO ONE (13:00)
[2017-09-04] MEDS ORDERED: SODIUM CHLORIDE 0.9% FLUSH 10 ML FLUSH IVF PRN (13:00)
--- NOTE | 2017-09-04 13:01 | PD ---
HPI Chief Complaint: Chest Pain Time Seen by Provider: 12:45 Travel History International Travel<30 days: No Contact w/Intl Traveler<30days: No Traveled to known affect area: No History of Present Illness HPI The patient is a 82-year-old female who presents to the emergency department for chest pain. The patient states she developed substernal chest pain while sitting in zoroast[place] earlier today. The substernal chest pain was nonradiating, described as pressure, and not associated with any shortness of breath, nausea, vomiting, diaphoresis, or dizziness. The patient states she had a similar episode of chest pain 1 week ago while sitting down at home. She denies any exertional symptoms. The patient does have a history of previous CVA , A. fib, hyperlipidemia, and hypertension. She denies any history of diabetes , tobacco use, or known coronary artery disease. The patient is followed by her nozzle worker, Dr. De Leon. The patient thinks her last stress test was 3- 4 years ago, cannot recall the date of her last cardiac catheterization. She denies any previous stent placement. The patient's current chest pain is 3 out of 10. PFSH Past Medical History Hx Anticoagulant Therapy: Yes Arthritis: Yes (BILATERAL KNEES) Asthma: Yes Anxiety: Yes Depression: No Heart Rhythm Problems: Yes (AFIB) Cancer: No Cardiac Catheterization: No Cardiovascular Problems: Yes High Cholesterol: No Chest Pain: Yes (ANXIETY RELATED) Congestive Heart Failure: No Cerebrovascular Accident: Yes Diabetes: No Diminished Hearing: No Diverticulitis: Yes (PERFORATED COLON) Endocrine: No Gastrointestinal Disorders: Yes (colon resection) Genitourinary: No Heparin Induced Thrombocytopen: No Hypertension: Yes Immune Disorder: No Implanted Vascular Access Dvce: No Musculoskeletal: Yes Neurologic: Yes Psychiatric: Yes Reproductive: No Respiratory: No Thyroid Disease: No Menopausal: Yes Past Surgical History Abdominal Surgery: Yes (COLON RESECTION, APPENDECTOMY, CHOLEYSTECTOMY) Appendectomy: Yes Cardiac Surgery: No Cholecystectomy: Yes Coronary Artery Bypass Graft: No Ear Surgery: No Endocrine Surgery: No Eye Surgery: No Genitourinary Surgery: No Gynecologic Surgery: Yes (HYSTERECTOMY) Hysterectomy: Yes Oral Surgery: No Thoracic Surgery: No Other Surgery: Yes (COLON RESECTION) Social History Alcohol Use: Yes (occasional wine) Tobacco Use: No Substance Use: No Allergies-Medications (Allergen,Severity, Reaction): Coded Allergies: No Known Allergies (Verified Adverse Reaction, Unknown, 09/04/17) Reported Meds & Prescriptions Reported Meds & Active Scripts Active Reported Zoloft (Sertraline HCl) 50 Mg Tab 50 Mg PO BID Diltiazem (Diltiazem HCl) 30 Mg Tab 10 Mg PO BID Omeprazole 20 Mg Tab 20 Mg PO DAILY Fosamax (Alendronate Sodium) 70 Mg Tab 70 Mg PO WEEKLY Azelastine Nasal [place] (Azelastine HCl) 0.1% [place] 1 [place] EACH NARE HS PRN Montelukast (Montelukast Sodium) 10 Mg Tab 10 Mg PO HS PRN Flonase Nasal [place] (Fluticasone Nasal [place]) 50 Mcg/Act [place] 1 [place] EACH NARE DAILY Eliquis (Apixaban) 5 Mg Tab 5 Mg PO Q12HR Lovastatin 20 Mg Tab 20 Mg PO DAILY Review of Systems Except as stated in HPI: all other systems reviewed are Neg General / Constitutional: No: Fever HENT: No: Lightheadedness Cardiovascular: Positive: Chest Pain or Discomfort, No: Dyspnea on exertion Respiratory: No: Shortness of Breath Gastrointestinal: No: Nausea, Vomiting, Abdominal Pain Musculoskeletal: No: Weakness, Edema Neurologic: No: Dizziness Physical Exam Narrative GENERAL: Awake, alert, pleasant 82-year-old female who appears her stated age and is in no acute respiratory distress. SKIN: Focused skin assessment warm/dry. HEAD: Atraumatic. Normocephalic. EYES: Pupils equal and round. No injection or drainage. ENT: No nasal bleeding or discharge. Mucous membranes pink and moist. NECK: Trachea midline. No JVD. CARDIOVASCULAR: Regular rate and rhythm. No murmur appreciated. Heart rate in the 70s. RESPIRATORY: No accessory muscle use. Clear to auscultation. Breath sounds equal bilaterally. GASTROINTESTINAL: Abdomen soft, non-tender, nondistended. No rebound tenderness. MUSCULOSKELETAL: No obvious deformities. No clubbing. No cyanosis. No edema. NEUROLOGICAL: Awake and alert. No obvious cranial nerve deficits. Motor grossly within normal limits. Normal speech. PSYCHIATRIC: Appropriate mood and affect; insight and judgment normal. Data Data Last Documented VS Vital Signs Date Time Temp Pulse Resp B/P (MAP) Pulse Ox O2 Delivery O2 Flow Rate FiO2 09/04/17 14:10 65 18 157/78 (104) 94 Room Air 09/04/17 12:46 98.0 Orders Orders Electrocardiogram (09/04/17 12:52) Ckmb (Isoenzyme) Profile (09/04/17 12:52) Complete Blood Count With Diff (09/04/17 12:52) Comprehensive Metabolic Panel (09/04/17 12:52) Magnesium (Mg) (09/04/17 12:52) Prothrombin Time / Inr (Pt) (09/04/17 12:52) Act Partial Throm Time (Ptt) (09/04/17 12:52) Troponin I (09/04/17 12:52) Chest, Single Ap (09/04/17 12:52) Ecg Monitoring (09/04/17 12:52) Bilateral Bp Monitoring (09/04/17 12:52) Iv Access Insert/Monitor (09/04/17 12:52) Oximetry (09/04/17 12:52) Oxygen Administration (09/04/17 12:52) Aspirin Chew (Aspirin Chew) (09/04/17 13:00) Nitroglycerin 2% Oint (Nitroglycerin 2% (09/04/17 13:00) Sodium Chloride 0.9% Flush (Ns Flush) (09/04/17 13:00) Nitroglycerin Sl (Nitrostat Sl) (09/04/17 13:00) Admit Order (Ed Use Only) (09/04/17 14:35) Labs Laboratory Tests Test 09/04/17 12:53 White Blood Count 6.0 TH/MM3 Red Blood Count 4.48 MIL/MM3 Hemoglobin 13.6 GM/DL Hematocrit 40.5 % Mean Corpuscular Volume 90.5 FL Mean Corpuscular Hemoglobin 30.5 PG Mean Corpuscular Hemoglobin Concent 33.7 % Red Cell Distribution Width 13.6 % Platelet Count 165 TH/MM3 Mean Platelet Volume 7.3 FL Neutrophils (%) (Auto) 74.8 % Lymphocytes (%) (Auto) 15.6 % Monocytes (%) (Auto) 7.5 % Eosinophils (%) (Auto) 1.2 % Basophils (%) (Auto) 0.9 % Neutrophils # (Auto) 4.5 TH/MM3 Lymphocytes # (Auto) 0.9 TH/MM3 Monocytes # (Auto) 0.4 TH/MM3 Eosinophils # (Auto) 0.1 TH/MM3 Basophils # (Auto) 0.1 TH/MM3 CBC Comment DIFF FINAL Differential Comment Prothrombin Time 11.0 SEC Prothromb Time International Ratio 1.1 RATIO Activated Partial Thromboplast Time 27.1 SEC Blood Urea Nitrogen 12 MG/DL Creatinine 0.72 MG/DL Random Glucose 107 MG/DL Total Protein 6.8 GM/DL Albumin 3.4 GM/DL Calcium Level 8.2 MG/DL Magnesium Level 1.6 MG/DL Alkaline Phosphatase 88 U/L Aspartate Amino Transf (AST/SGOT) 32 U/L Alanine Aminotransferase (ALT/SGPT) 41 U/L Total Bilirubin 0.6 MG/DL Sodium Level 135 MEQ/L Potassium Level 4.1 MEQ/L Chloride Level 101 MEQ/L Carbon Dioxide Level 25.9 MEQ/L Anion Gap 8 MEQ/L Estimat Glomerular Filtration Rate 77 ML/MIN Total Creatine Kinase 74 U/L Troponin I LESS THAN 0.02 NG/ML MDM Medical Decision Making Medical Screen Exam Complete: Yes Emergency Medical Condition: Yes Medical Record Reviewed: Yes Interpretation(s) EKG reveals normal sinus rhythm with a rate in the 70s. Q wave noted in lead 3 and aVF. Laboratory Tests Test 09/04/17 12:53 White Blood Count 6.0 TH/MM3 Red Blood Count 4.48 MIL/MM3 Hemoglobin 13.6 GM/DL Hematocrit 40.5 % Mean Corpuscular Volume 90.5 FL Mean Corpuscular Hemoglobin 30.5 PG Mean Corpuscular Hemoglobin Concent 33.7 % Red Cell Distribution Width 13.6 % Platelet Count 165 TH/MM3 Mean Platelet Volume 7.3 FL Neutrophils (%) (Auto) 74.8 % Lymphocytes (%) (Auto) 15.6 % Monocytes (%) (Auto) 7.5 % Eosinophils (%) (Auto) 1.2 % Basophils (%) (Auto) 0.9 % Neutrophils # (Auto) 4.5 TH/MM3 Lymphocytes # (Auto) 0.9 TH/MM3 Monocytes # (Auto) 0.4 TH/MM3 Eosinophils # (Auto) 0.1 TH/MM3 Basophils # (Auto) 0.1 TH/MM3 CBC Comment DIFF FINAL Differential Comment Prothrombin Time 11.0 SEC Prothromb Time International Ratio 1.1 RATIO Activated Partial Thromboplast Time 27.1 SEC Blood Urea Nitrogen 12 MG/DL Creatinine 0.72 MG/DL Random Glucose 107 MG/DL Total Protein 6.8 GM/DL Albumin 3.4 GM/DL Calcium Level 8.2 MG/DL Magnesium Level 1.6 MG/DL Alkaline Phosphatase 88 U/L Aspartate Amino Transf (AST/SGOT) 32 U/L Alanine Aminotransferase (ALT/SGPT) 41 U/L Total Bilirubin 0.6 MG/DL Sodium Level 135 MEQ/L Potassium Level 4.1 MEQ/L Chloride Level 101 MEQ/L Carbon Dioxide Level 25.9 MEQ/L Anion Gap 8 MEQ/L Estimat Glomerular Filtration Rate 77 ML/MIN Total Creatine Kinase 74 U/L Troponin I LESS THAN 0.02 NG/ML Chest x-ray reveals mild cardiomegaly. No acute focal pulmonary infiltrate or pulmonary vascular congestion. Differential Diagnosis Differential diagnosis includes acute coronary syndrome, STEMI, angina, GERD, esophageal spasm, pulmonary embolism, pleural effusion. Narrative Course IV was established, labs are drawn and sent, and the patient was placed on cardiac telemetry monitoring and continuous pulse oximetry monitoring. EKG was ordered and interpreted. The patient was administered aspirin, nitroglycerin sublingual, and Nitropaste. Chest x-ray was obtained. Chest x-ray reveals cardiomegaly, no acute findings. Troponin is unremarkable. I reviewed the patient's EMR, she last had a nuclear medicine myocardial perfusion scan performed in February 2014 which revealed a small fixed defect in the lateral myocardia towards the base but no reversible defects. The patient does have multiple risk factors for CAD, may benefit from serial cardiac enzymes and 23 hour observation to the chest pain center. The patient's chest pain did resolve with the administration of nitroglycerin. [facility]. Physician Communication Physician Communication I discussed the patient with Dr. Mills who agrees with 23 hour observation to the chest pain Center at [facility]. Diagnosis Primary Impression: Chest pain Qualified Codes: R07.9 - Chest pain, unspecified Admitting Information Admitting Physician Requests: Observation Condition: Stable Jc Yao MD Sep 04, 2017 13:01
[2017-09-04 13:02] LABS: AUTOMATED NEUTROPHIL # 4.5 TH/MM3 (1.8-7.7); BASOPHIL # 0.1 TH/MM3 (0-0.2); BASOPHIL % 0.9 % (0.0-2.0); EOSINOPHIL # 0.1 TH/MM3 (0-0.4); EOSINOPHIL % 1.2 % (0.0-4.0); HEMATOCRIT 40.5 % (35.0-46.0); HEMO FLAGS DIFF FINAL; LYMPH % 15.6 % (9.0-44.0); LYMPHOCYTE # 0.9 TH/MM3 (1.0-4.8); MEAN CELL VOLUME 90.5 FL (80.0-100.0); MEAN CORPUSCULAR HEMOGLOBIN 30.5 PG (27.0-34.0); MEAN CORPUSCULAR HGB CONC 33.7 % (32.0-36.0); MONO % 7.5 % (0.0-8.0); NEUT % 74.8 % (16.0-70.0); PLATELET COUNT 165 TH/MM3 (150-450); RED BLOOD COUNT 4.48 MIL/MM3 (4.00-5.30); RED CELL DISTRIBUTION WIDTH 13.6 % (11.6-17.2)
[2017-09-04 13:09] LABS: CHLORIDE 101 MEQ/L (98-107); POTASSIUM 4.1 MEQ/L (3.5-5.1); SODIUM (NA) 135 MEQ/L (136-145)
[2017-09-04 13:14] LABS: APTT (PATIENT) 27.1 SEC (24.3-30.1); INTERNATIONAL NORMALIZED RATIO 1.1 RATIO
[2017-09-04 13:17] LABS: ANION GAP 8 MEQ/L (5-15); BICARBONATE 25.9 MEQ/L (21.0-32.0); BLOOD UREA NITROGEN 12 MG/DL (7-18); MAGNESIUM 1.6 MG/DL (1.5-2.5)
[2017-09-04 13:20] LABS: ALT (GPT) 41 U/L (10-53); AST (GOT) 32 U/L (15-37); GLOMERULAR FILTRATION RATE 77 ML/MIN (>89)
[2017-09-04 13:21] LABS: TOTAL BILIRUBIN ADULT 0.6 MG/DL (0.2-1.0)
[2017-09-04 13:23] LABS: ALKALINE PHOSPHATASE 88 U/L (45-117)
[2017-09-04 13:31] LABS: CREATINE KINASE 74 U/L (26-192)
--- NOTE | 2017-09-04 14:04 | RADRPT ---
EXAM DATE/TIME: 09/04/2017 13:38 [place] COMPARISON: CHEST SINGLE AP, July 26, 2017, 21:52. INDICATIONS : Chest pain today MEDICAL HISTORY : Stroke. A Fib SURGICAL HISTORY : None. ENCOUNTER: Initial ACUITY: 1 day PAIN SCORE: 5/10 LOCATION: Bilateral chest FINDINGS: The heart is mildly prominent. The pulmonary vascular pattern is normal. The lungs are clear. CONCLUSION: 1. Mild cardiomegaly. 2. No acute focal pulmonary infiltrate or pulmonary vascular congestion. Amilcar Marc MD on September 04, 2017 at 14:00 Board Certified Radiologist. This report was verified electronically.
[2017-09-04] MEDS ORDERED: BISACODYL 10 MG SUPP RECTAL PRN (16:00)
[2017-09-04] MEDS ORDERED: ONDANSETRON HCL 4 MG/2 ML VIAL IVP PRN (16:00)
[2017-09-04] MEDS ORDERED: MAGNESIUM HYDROXIDE SUSP 30 ML CUP PO PRN (16:00)
[2017-09-04] MEDS ORDERED: SENNOSIDES 8.6 MG TAB PO PRN (16:00)
[2017-09-04] MEDS ORDERED: ACETAMINOPHEN 325 MG TAB PO PRN (16:00)
[2017-09-04] MEDS ORDERED: cloNIDine HCL 0.1 MG TAB PO PRN (16:15)
[2017-09-04] MEDS ORDERED: AZELASTINE 0.1% INH PRN (16:15)
--- NOTE | 2017-09-04 16:32 | HHI.HP ---
HPI Service [facility] Primary Care Physician Jc Yao MD Admission Diagnosis Chest pain rule out ACS Diagnoses: (1) Chest pain Diagnosis: Principal Chief Complaint: Chest pain Travel History International Travel<30 Days: No Contact w/Intl Traveler <30 Da: No Traveled to Known Affected Are: No History of Present Illness Ms. Osborne is an 82-year-old female patient with a known medical history of atrial fibrillation on Eliquis, anxiety, CVA history and HTN who presented to the ED with complaints of chest pain. Patient states that she was sitting in shinto when she developed a substernal chest pain that was characterized as pressure-like in nature and radiated to her neck, rated a 5/10 on pain scale, pain lasted roughly 45 minutes and then subsided. Denies any aggravating or relieving factors. Denies any associated nausea, vomiting, diaphoresis or shortness of breath. Patient's slps is Dr. De Leon with reports of her last stress test being 4 years ago. She also underwent a cardiac cancerization with no stent placement and unaware of the date this was performed. Denies any recent illness including fever, chills, headache, sore throat, shortness of breath, ab pain, n/v/d or dysuria. Review of Systems Constitutional: DENIES: Fever, Chills Eyes: DENIES: Blurred vision, Diplopia Respiratory: DENIES: Cough, Sputum production, Shortness of breath Cardiovascular: COMPLAINS OF: Chest pain Gastrointestinal: DENIES: Abdominal pain, Black stools, Bloody stools, Constipation, Diarrhea, Nausea, Vomiting Psychiatric: DENIES: Anxiety Except as stated in HPI: all other systems reviewed are Neg Past Family Social History Past Medical History Hypertension Hyperlipidemia History TIAs History diverticulitis status post colectomy Chronic bronchitis Past Surgical History Appendectomy Colon Resection Hysterectomy Cholecystectomy Past Surgical History Colon resection Appendectomy Cholecystectomy Hysterectomy Reported Medications Reported Meds & Active Scripts Active Reported Zoloft (Sertraline HCl) 50 Mg Tab 50 Mg PO BID Diltiazem (Diltiazem HCl) 30 Mg Tab 10 Mg PO BID Omeprazole 20 Mg Tab 20 Mg PO DAILY Fosamax (Alendronate Sodium) 70 Mg Tab 70 Mg PO WEEKLY Azelastine Nasal [place] (Azelastine HCl) 0.1% [place] 1 [place] EACH NARE HS PRN Montelukast (Montelukast Sodium) 10 Mg Tab 10 Mg PO HS PRN Flonase Nasal [place] (Fluticasone Nasal [place]) 50 Mcg/Act [place] 1 [place] EACH NARE DAILY Eliquis (Apixaban) 5 Mg Tab 5 Mg PO Q12HR Lovastatin 20 Mg Tab 20 Mg PO DAILY Allergies: Coded Allergies: No Known Allergies (Verified Allergy, Unknown, 09/04/17) Active Ordered Medications Current Medications Medications (Trade) Dose Ordered Sig/Denisha Route Start Time Stop Time Status Last Admin (NS Flush) 2 ml UNSCH PRN IVF 09/04/17 13:00 (Tylenol) 650 mg Q4H PRN PO 09/04/17 16:00 (Zofran Inj) 4 mg Q6H PRN IVP 09/04/17 16:00 (Maria G-Colace) 1 tab BID PO 09/04/17 21:00 (Milk Of Magnesia Liq) 30 ml Q12H PRN PO 09/04/17 16:00 (Senokot) 17.2 mg Q12H PRN PO 09/04/17 16:00 (Dulcolax Supp) 10 mg DAILY PRN RECTAL 09/04/17 16:00 (Eliquis) 5 mg Q12HR PO 09/04/17 21:00 (Cardizem) 10 mg BID PO 09/04/17 21:00 UNV (Pravachol) 20 mg DAILY PO 09/05/17 09:00 (Zoloft) 50 mg BID PO 09/04/17 21:00 Patient Own Medication PT OWN MED:AZELASTINE 0.1% NA... HS PRN INH 09/04/17 16:15 Future Hold (Flonase David Spr) 1 spray DAILY NASAL 09/05/17 09:00 (Protonix) 20 mg DAILY PO 09/05/17 09:00 (Catapres) 0.1 mg Q6H PRN PO 09/04/17 16:15 09/04/17 16:20 Family History Reviewed is significant for mother having high blood pressure, stroke. Father with colon cancer which metastasized to the liver Social History Patient does use alcohol occasionally, denies any tobacco or illicit drugs Physical Exam Vital Signs Vital Signs Date Time Temp Pulse Resp B/P (MAP) Pulse Ox O2 Delivery O2 Flow Rate FiO2 09/04/17 15:40 98.2 82 17 160/84 (109) 96 09/04/17 14:10 65 18 157/78 (104) 94 Room Air 09/04/17 13:08 68 16 150/71 (97) 94 Room Air 141/74 (96) 09/04/17 12:46 98.0 71 17 194/79 (117) 94 09/04/17 12:46 Room Air Physical Exam GENERAL: This is a well-nourished, well-developed patient, in no apparent distress. SKIN: No rashes, ecchymoses or lesions. Warm and dry. HEAD: Atraumatic. Normocephalic. Pupils equal round and reactive. Extraocular motions intact. No scleral icterus. No injection or drainage. Nose without bleeding. Airway patent. NECK: Trachea midline. No JVD. Supple. CARDIOVASCULAR: Regular rate and rhythm without murmurs, gallops, or rubs. No reproducible chest pain to palpation. RESPIRATORY: Clear to auscultation. Breath sounds equal bilaterally. No wheezes , rales, or rhonchi. GASTROINTESTINAL: Abdomen soft, non-tender, nondistended. No guarding. MUSCULOSKELETAL: Extremities without clubbing, cyanosis, or edema. No joint tenderness, effusion, or edema noted. NEUROLOGICAL: Awake and alert. Cranial nerves II through XII intact. Motor and sensory grossly within normal limits. Five out of 5 muscle strength in all muscle groups. Normal speech. Laboratory Laboratory Tests Test 09/04/17 12:53 White Blood Count 6.0 Red Blood Count 4.48 Hemoglobin 13.6 Hematocrit 40.5 Mean Corpuscular Volume 90.5 Mean Corpuscular Hemoglobin 30.5 Mean Corpuscular Hemoglobin Concent 33.7 Red Cell Distribution Width 13.6 Platelet Count 165 Mean Platelet Volume 7.3 Neutrophils (%) (Auto) 74.8 Lymphocytes (%) (Auto) 15.6 Monocytes (%) (Auto) 7.5 Eosinophils (%) (Auto) 1.2 Basophils (%) (Auto) 0.9 Neutrophils # (Auto) 4.5 Lymphocytes # (Auto) 0.9 Monocytes # (Auto) 0.4 Eosinophils # (Auto) 0.1 Basophils # (Auto) 0.1 CBC Comment DIFF FINAL Differential Comment Prothrombin Time 11.0 Prothromb Time International Ratio 1.1 Activated Partial Thromboplast Time 27.1 Blood Urea Nitrogen 12 Creatinine 0.72 Random Glucose 107 Total Protein 6.8 Albumin 3.4 Calcium Level 8.2 Magnesium Level 1.6 Alkaline Phosphatase 88 Aspartate Amino Transf (AST/SGOT) 32 Alanine Aminotransferase (ALT/SGPT) 41 Total Bilirubin 0.6 Sodium Level 135 Potassium Level 4.1 Chloride Level 101 Carbon Dioxide Level 25.9 Anion Gap 8 Estimat Glomerular Filtration Rate 77 Total Creatine Kinase 74 Troponin I LESS THAN 0.02 Result Diagram: 09/04/17 1253 09/04/17 1253 Imaging Last Impressions Chest X-Ray 09/04/17 1252 Signed Impressions: Service Date/Time: Monday, September 04, 2017 13:38 - CONCLUSION: 1. Mild cardiomegaly. 2. No acute focal pulmonary infiltrate or pulmonary vascular congestion. Amilcar Marc MD Septic Shock Reassessment Septic shock perfusion: reassessment completed Caprini VTE Risk Assessment Caprini VTE Risk Assessment: Mod/High Risk (score >= 2) Caprini Risk Assessment Model Point Value = 1 Point Value = 2 Point Value = 3 Point Value = 5 Age 41-60 Minor surgery BMI > 25 kg/m2 Swollen legs Varicose veins or History of unexplained or recurrent spontaneous Oral contraceptives or hormone replacement Sepsis (< 1 month) Serious lung disease, including pneumonia (< 1 month) Abnormal pulmonary function Acute myocardial infarction Congestive heart failure (< 1 month) History of inflammatory bowel disease Medical patient at bed rest Age 61-74 Arthroscopic surgery Major open surgery (> 45 min) Laparoscopic surgery (> 45 min) Malignancy Confined to bed (> 72 hours) Immobilizing plaster cast Central venous access Age >= 75 History of VTE Family history of VTE Factor V Leiden Prothrombin [id number] Lupus anticoagulant Anticardiolipin antibodies Elevated serum homocysteine Heparin-induced thrombocytopenia Other congenital or acquired thrombophilia Stroke (< 1 month) Elective arthroplasty Hip, pelvis, or leg fracture Acute spinal cord injury (< 1 month) Prophylaxis Regimen Total Risk Factor Score Risk Level Prophylaxis Regimen 0-1 Low Early ambulation 2 Moderate Order ONE of the following: *Sequential Compression Device (SCD) *Heparin 5000 units SQ BID 3-4 Higher Order ONE of the following medications: *Heparin 5000 units SQ TID *Enoxaparin/Lovenox 40 mg SQ daily (WT < 150 kg, CrCl > 30 mL/min) *Enoxaparin/Lovenox 30 mg SQ daily (WT < 150 kg, CrCl > 10-29 mL/min) *Enoxaparin/Lovenox 30 mg SQ BID (WT < 150 kg, CrCl > 30 mL/min) AND/OR *Sequential Compression Device (SCD) 5 or more Highest Order ONE of the following medications: *Heparin 5000 units SQ TID (Preferred with Epidurals) *Enoxaparin/Lovenox 40 mg SQ daily (WT < 150 kg, CrCl > 30 mL/min) *Enoxaparin/Lovenox 30 mg SQ daily (WT < 150 kg, CrCl > 10-29 mL/min) *Enoxaparin/Lovenox 30 mg SQ BID (WT < 150 kg, CrCl > 30 mL/min) AND *Sequential Compression Device (SCD) Assessment and Plan Problem List: (1) Chest pain ICD Code: R07.9 - Chest pain Status: Acute Plan: Patient has been admitted to the chest pain center. Serial Ekgs and serial troponins have been ordered for ruling out ACS purposes. Initial troponin flat. Will continue to monitor trends. Patient was given aspirin and Nitroglycerin in ED. Pain has completely resolved. EKG reviewed showing NSR with controlled HR. Some early repolarization noted on EKG in inferior leads. CXR reviewed showing no acute disease, cardiomegaly present. Will allow patient to eat tonight with plans for NPO after midnight. If serial troponins and serial Ekgs are negative patient will undergo a nuclear stress test to rule out any possibility of further ischemia. Continue cardiac telemetry to monitor for any arrhythmias. Patient is stable at this time and agreeable to the plan. (2) Hypertension ICD Code: I10 - Essential (primary) hypertension Status: Acute Plan: BP elevated on presentation. Restart home medications. Clonidine ordered PRN as needed. Monitor BP trends. (3) Atrial fibrillation ICD Code: I48.91 - Unspecified atrial fibrillation Status: Acute Plan: Controlled rate. Continue cardiac telemetry. Continue home Eliquis. Continue Cardizem. DVT Prophylaxis: SCDs. Problem Qualifiers (1) Chest pain: Qualified Codes: R07.9 - Chest pain, unspecified Mirna Barbosa Sep 04, 2017 16:32
[2017-09-04 19:07] LABS: CREATINE KINASE 58 U/L (26-192)
[2017-09-04] MEDS: DILTIAZEM HCL 30 MG TAB PO SCH (20:53)
[2017-09-04] MEDS: DOCUSATE SODIUM 50 MG/SENNA 8.6 MG TAB PO SCH (20:54)
[2017-09-04] MEDS: APIXABAN 5 MG TABLET PO SCH (20:54)
[2017-09-04] MEDS: SERTRALINE HCL 50 MG TAB PO SCH (20:54)
[2017-09-04] MEDS ORDERED: DILTIAZEM HCL 30 MG TAB PO SCH (21:00)
[2017-09-05] VITALS: BP 167/83; PULSE 58; RESP 18; TEMP 97.6; O2SAT 93
[2017-09-05 01:54] LABS: CREATINE KINASE 55 U/L (26-192)
[2017-09-05 04:00] VITALS: BP 158/72; PULSE 56; RESP 16; TEMP 97.6; O2SAT 94
[2017-09-05 06:48] LABS: POTASSIUM 3.8 MEQ/L (3.5-5.1)
[2017-09-05 06:52] LABS: BICARBONATE 29.2 MEQ/L (21.0-32.0)
[2017-09-05 07:36] LABS: AUTOMATED NEUTROPHIL # 3.4 TH/MM3 (1.8-7.7); BASOPHIL % 0.4 % (0.0-2.0); EOSINOPHIL # 0.1 TH/MM3 (0-0.4); EOSINOPHIL % 2.1 % (0.0-4.0); HEMATOCRIT 39.3 % (35.0-46.0); HEMO FLAGS DIFF FINAL; LYMPH % 19.7 % (9.0-44.0); LYMPHOCYTE # 1.1 TH/MM3 (1.0-4.8); MEAN CELL VOLUME 90.7 FL (80.0-100.0); MEAN CORPUSCULAR HEMOGLOBIN 30.2 PG (27.0-34.0); MEAN CORPUSCULAR HGB CONC 33.3 % (32.0-36.0); MONO % 12.2 % (0.0-8.0); NEUT % 65.6 % (16.0-70.0); PLATELET COUNT 170 TH/MM3 (150-450); RED BLOOD COUNT 4.33 MIL/MM3 (4.00-5.30); RED CELL DISTRIBUTION WIDTH 13.8 % (11.6-17.2); WHITE BLOOD COUNT 5.3 TH/MM3 (4.0-11.0)
[2017-09-05 08:00] VITALS: O2SAT 93
[2017-09-05] MEDS: DILTIAZEM HCL 30 MG TAB PO SCH (09:00)
[2017-09-05] MEDS ORDERED: FLUTICASONE PROPIONATE 50 MCG/ACT 16 GM NASAL SPRAY NASAL SCH (09:00)
[2017-09-05] MEDS ORDERED: PANTOPRAZOLE SOD 20 MG DELAYED RELEASE TAB PO SCH (09:00)
[2017-09-05] MEDS ORDERED: ALENDRONATE SODIUM 70 MG TAB PO SCH (09:00)
[2017-09-05] MEDS ORDERED: PRAVASTATIN SOD 20 MG TAB PO SCH (09:00)
--- NOTE | 2017-09-05 09:44 | HHI.PR ---
Subjective Remarks Follow up chest pain. Patient seen and examined today, lying in bed comfortably in no distress. Denies any continued chest pain overnight. Pain is resolved. Eager to undergo stress test. Afebrile. Mild hypertension. No complaints. Objective Vitals Vital Signs Date Time Temp Pulse Resp B/P (MAP) Pulse Ox O2 Delivery O2 Flow Rate FiO2 09/05/17 04:00 97.6 56 16 158/72 (100) 94 09/05/17 00:00 97.6 58 18 167/83 (111) 93 09/04/17 20:07 58 09/04/17 20:00 97.0 59 20 158/71 (100) 93 09/04/17 20:00 95 21 09/04/17 18:06 95 09/04/17 16:02 63 09/04/17 16:00 98.0 83 18 183/77 (112) 95 09/04/17 15:40 98.2 82 17 160/84 (109) 96 09/04/17 14:10 65 18 157/78 (104) 94 Room Air 09/04/17 13:08 68 16 150/71 (97) 94 Room Air 141/74 (96) 09/04/17 12:46 98.0 71 17 194/79 (117) 94 09/04/17 12:46 Room Air I/O 09/04/17 09/04/17 09/04/17 09/05/17 09/05/17 09/05/17 07:00 15:00 23:00 07:00 15:00 23:00 Intake Total 480 ml 480 ml Balance 480 ml 480 ml Intake Oral 480 ml 480 ml # Voids 1 3 # Bowel Movements 0 0 Result Diagram: 09/05/17 0624 09/05/17 0624 Imaging Last Impressions Chest X-Ray 09/04/17 1252 Signed Impressions: Service Date/Time: Monday, September 04, 2017 13:38 - CONCLUSION: 1. Mild cardiomegaly. 2. No acute focal pulmonary infiltrate or pulmonary vascular congestion. Amilcar Marc MD Objective Remarks GENERAL: This is a well-nourished, well-developed patient, in no apparent distress. SKIN: No rashes, ecchymoses or lesions. Warm and dry. HEAD: Atraumatic. Normocephalic. Pupils equal round and reactive. Extraocular motions intact. No scleral icterus. No injection or drainage. Nose without bleeding. Airway patent. NECK: Trachea midline. No JVD. Supple. CARDIOVASCULAR: Regular rate and rhythm without murmurs, gallops, or rubs. No reproducible chest pain to palpation. RESPIRATORY: Clear to auscultation. Breath sounds equal bilaterally. No wheezes , rales, or rhonchi. GASTROINTESTINAL: Abdomen soft, non-tender, nondistended. No guarding. MUSCULOSKELETAL: Extremities without clubbing, cyanosis, or edema. No joint tenderness, effusion, or edema noted. NEUROLOGICAL: Awake and alert. Cranial nerves II through XII intact. Motor and sensory grossly within normal limits. Five out of 5 muscle strength in all muscle groups. Normal speech. A/P Problem List: (1) Chest pain ICD Code: R07.9 - Chest pain Status: Acute Plan: Patient has been admitted to the chest pain center. Serial Ekgs and serial troponins have been ordered for ruling out ACS purposes. Trends flat. Patient was given aspirin and Nitroglycerin in ED. Pain has completely resolved. EKG reviewed showing NSR with controlled HR. Some early repolarization noted on EKG in inferior leads. CXR reviewed showing no acute disease, cardiomegaly present. Patient will undergo a nuclear stress test to rule out any possibility of further ischemia. Continue to follow. Supportive care. Continue cardiac telemetry to monitor for any arrhythmias. Patient is stable at this time and agreeable to the plan. (2) Hypertension ICD Code: I10 - Essential (primary) hypertension Status: Acute Plan: BP elevated on presentation. Restart home medications. Clonidine ordered PRN as needed. Monitor BP trends. (3) Atrial fibrillation ICD Code: I48.91 - Unspecified atrial fibrillation Status: Acute Plan: Controlled rate. Continue cardiac telemetry. Continue home Eliquis. Continue Cardizem. DVT Prophylaxis: SCDs. Assessment and Plan Nuclear stress test complete, reviewed results showing an EF 70% No reversibility to suggest ischemia. Showing some possible old areas of infarction. Excellent wall motion. Will DC patient home to follow up with PCP. Also to follow up with cardiology within the month. Patient encouraged to return to ED if symptoms worsen or persist. At this time patients symptoms have resolved. Patient's BP has been elevated since presentation. She was unsure of dose of Cardizem prescribed by Dr. De Leon. She says at home her BP is usually well controlled. I encouraged her to continue taking her Cardizem as prescribed by him and to check it regularly. If continued to be elevated, patient encouraged to see Dr. De Leon sooner with further recommendations on BP medication management. Patient is stable at this time and agreeable to the plan. Problem Qualifiers (1) Chest pain: Qualified Codes: R07.9 - Chest pain, unspecified Mirna Barbosa Sep 05, 2017 09:44
[2017-09-05] MEDS: SERTRALINE HCL 50 MG TAB PO SCH (09:48)
[2017-09-05] MEDS: APIXABAN 5 MG TABLET PO SCH (09:48)
[2017-09-05] MEDS: DOCUSATE SODIUM 50 MG/SENNA 8.6 MG TAB PO SCH (09:48)
[2017-09-05 09:57] VITALS: BP 187/77; PULSE 55; RESP 14; TEMP 97.9; O2SAT 92
[2017-09-05] MEDS ORDERED: REGADENOSON INJ 0.4 MG/5 ML SYR IV ONE (11:33)
--- NOTE | 2017-09-05 12:53 | RADRPT ---
EXAM DATE/TIME: 09/05/2017 11:21 [facility] COMPARISON: No previous studies available for comparison. INDICATIONS : Mid chest pain for one day. Angina. Atrial fibrillation. DOSE: 26.3 mCi Tc99m Myoview at stress. 8.8 mCi Tc99m Myoview at rest. 0.4 mg Lexiscan STRESS SYMPTOMS: Stomach cramps with shortness of breath. EJECTION FRACTION: > 70% MEDICAL HISTORY : Hypertension. Stroke SURGICAL HISTORY : Hysterectomy. Cholecystectomy. Appendectomy. ENCOUNTER: Initial ACUITY: 1 day PAIN SCALE: 5/10 LOCATION: Midsternal chest TECHNIQUE: The patient underwent pharmacologic stress with infusion of prescribed dose. Continuous ECG tracing was monitored during stress. Gated SPECT imaging was performed after stress and conventional SPECT i maging was performed at rest. The examination was performed on a SPECT/CT scanner, both attenuation and non-corrected datasets were reviewed. FINDINGS: DISTRIBUTION: The maximum perfused segment at stress is in the septal wall. PERFUSION STUDY: The pattern of perfusion at stress shows fixed perfusion in the mid anterior wall as well as the low inferolateral wall extending into the apex. GATED STUDY: There is intact wall motion and thickening without hypokinetic or dyskinetic segments. CONCLUSION: 1. No reversibility to suggest ischemia. 2. Fixed diminished perfusion to the mid anterior wall and the low inferolateral wall extending into the apex possibly representing old areas of infarction. 3. Excellent wall motion throughout and an estimated ejection fracture greater than 70% RISK CATEGORY: Low (<1% Annual Mortality Rate) Maxwell Gallego MD on September 05, 2017 at 12:47 Board Certified Radiologist. This report was verified electronically.
--- NOTE | 2017-09-05 13:02 | HHI.DCPOC ---
Discharge Care Plan Diagnosis: (1) Chest pain Goals to Promote Your Health * To prevent worsening of your condition and complications * To maintain your health at the optimal level Directions to Meet Your Goals Take your medications as prescribed Follow your dietary instruction Follow activity as directed Keep your appointments as scheduled Take your immunizations and boosters as scheduled If your symptoms worsen call your PCP, if no PCP go to Urgent Care Center or Emergency Room Smoking is Dangerous to Your Health. Avoid second hand smoke Call the 24-hour hour crisis hotline for domestic abuse at Mirna Barbosa Sep 05, 2017 13:02
--- NOTE | 2017-09-05 17:56 | EKG ---
Date Performed: 09/04/2017 Time Performed: 17:52:23 PTAGE: 82 years EKG: Sinus rhythm PROBABLE INFERIOR MYOCARDIAL INFARCTION Since previous tracing, no significant change noted ABNORMAL ECG PREVIOUS TRACING : 09/04/2017 12.47 DOCTOR: Aleksandr Styles Interpretating Date/Time 09/05/2017 17:54:51
--- NOTE | 2017-09-05 17:56 | EKG ---
Date Performed: 09/04/2017 Time Performed: 12:47:52 PTAGE: 82 years EKG: Sinus rhythm PROBABLE INFERIOR MYOCARDIAL INFARCTION Since previous tracing, no significant change noted ABNORMAL ECG PREVIOUS TRACING : 07/26/2017 21.10.20 DOCTOR: Aleksandr Styles Interpretating Date/Time 09/05/2017 17:54:25
--- NOTE | 2017-09-05 17:57 | EKG ---
Date Performed: 09/04/2017 Time Performed: 23:46:09 PTAGE: 82 years EKG: SINUS BRADYCARDIA POSSIBLE INFERIOR MYOCARDIAL INFARCTION Since previous tracing, no signif icant change noted BORDERLINE ECG PREVIOUS TRACING : 09/04/2017 17.52 DOCTOR: Aleksandr Styles Interpretating Date/Time 09/05/2017 17:55:23
--- NOTE | 2017-09-06 07:52 | TR ---
Date Performed: 09/05/2017 Time Performed: 11:46:42 DOCTOR: Mai Davidson DRUG LIST: CLINICAL HISTORY: CHEST PAIN REASON FOR TEST: Chest pain REASON FOR ENDING: OBSERVATION: CONCLUSION: Lexiscan stress test was performed under standard four minute protocol. Radionucl[place] e was injected one minute prior to ending the test. No electrocardiographic abormalities were present to suggest ischemia. Nuclear imaging and interpretation are pending. COMMENTS:
== END 2017-09-05 14:50 | disposition home or self-care (01) ==
LOC: PHED 12:37 → PHEDA 14:36 → PH3A 15:43
PROVIDERS: ADMIT Hospitalist; ATTEND Hospitalist
DX: R07.9 Chest pain, unspecified (principal); I48.91 Unspecified atrial fibrillation; I11.9 Hypertensive heart disease without heart failure; E78.5 Hyperlipidemia, unspecified; J42 Unspecified chronic bronchitis; Z86.73 Personal history of transient ischemic attack (TIA), and cerebral infarction without residual deficits; Z90.49 Acquired absence of other specified parts of digestive tract; Z90.710 Acquired absence of both cervix and uterus
CPT/HCPCS: 71010; 78452; 80048; 80053; 82550; 83735; 84484; 85025; 85610; 85730; 93005; 93017; 99285; A9502; G0378; J2785